=== PATIENT | female | born 1970 | race Two or more races ===

== ENCOUNTER → 2020-01-23 13:08 | Outpatient (BNVA) | payer OTHER, MEDICAID, SELFPAY | PROVIDERS: PCP Internal Medicine; Visit Provider Anesthesiology | DX: M47.27 Other spondylosis with radiculopathy, lumbosacral region (principal); G89.4 Chronic pain syndrome; Z96.651 Presence of right artificial knee joint | CPT/HCPCS: 99213 ==

== ENCOUNTER 2020-02-12 18:14 | Outpatient (REF) | payer OTHER, MEDICAID, SELFPAY ==
--- NOTE | 2020-02-12 18:16 | MR_ITS ---
EXAMINATION: MR LUMBAR SPINE WITHOUT CONTRAST CLINICAL INFORMATION: Other spondylosis with radiculopathy, lumbar sacral. COMPARISON: MRI scan of the lumbar spine 11/12/2015. TECHNIQUE: MRI of the lumbar spine was obtained using routine sequences without contrast. FINDINGS: VERTEBRAL BODIES AND PARASPINAL STRUCTURES: There is a mild levoscoliosis in the lower lumbar spine. There is mild narrowing of intervertebral disc height at L1-L2, with Schmorl's nodes in the adjacent endplates. There is also a Schmorl's node in the inferior endplate of T11. There are mild degenerative endplate contour changes. There are mild edematous signal changes in the left L4 pedicle. Vertebral body heights are maintained. No fractures are demonstrated. Overall, marrow signal is homogenous. The visualized retroperitoneal and pelvic structures are unremarkable. CONUS MEDULLARIS AND CAUDA EQUINA: Normal, terminating at the level of L1. The lower thoracic spinal cord appears normal. The cauda equina nerve roots and filum terminale appear normal. SPINAL LEVELS: L1-L2: The facet joints appear normal. There is a small posterior disc protrusion, but there is no central stenosis. The neural foramina are patent bilaterally. L2-L3: There is mild bilateral facet arthropathy. Disc contour is normal. There is no central stenosis or foraminal narrowing. L3-L4: There is mild bilateral facet arthropathy. Disc contour is normal. There is no central stenosis or foraminal narrowing. L4-L5: There is moderate to severe bilateral facet arthropathy with ligamenta flava hypertrophy and a left facet joint effusion. There is a broad-based posterior disc protrusion with an annular fissure extending into the left greater than right neural foramina, and there is impingement on the exiting left L4 nerve root. There is also marked narrowing of the bilateral subarticular recesses with impingement on the traversing L5 nerve roots. There is moderate central stenosis. L5-S1: There is severe bilateral facet arthropathy. There is a mild diffuse disc bulge, and there is a small right foraminal disc protrusion impinging on the exiting right L5 nerve root inferiorly. There is no central stenosis. MR/MR lumbar spine wo con IMPRESSION: 1. At L4-L5 there is facet arthropathy and there is a posterior disc protrusion. There is impingement on the exiting left L4 nerve root and there is marked narrowing of the bilateral subarticular recesses. There is moderate central stenosis. There are edematous signal changes in the left L4 pedicle, likely related to active degenerative changes. 2. At L5-S1 there is severe facet arthropathy and there is a posterior disc protrusion extending into the right neural foramen with impingement on the exiting right L5 nerve root. There is no central stenosis.
== END 2020-02-12 18:15 | disposition home or self-care (01) ==
LOC: HO.MRI 18:14
PROVIDERS: PCP Internal Medicine; Visit Provider Anesthesiology
DX: M47.27 Other spondylosis with radiculopathy, lumbosacral region (principal)
CPT/HCPCS: 72148

== ENCOUNTER 2020-06-10 14:08 | Outpatient (REF) | payer OTHER, SELFPAY | END 2020-06-10 14:09 | disposition home or self-care (01) | LOC: HO.LAB 14:08 | PROVIDERS: Visit Provider Internal Medicine | DX: Z20.822 Contact with and (suspected) exposure to COVID-19 (principal) | CPT/HCPCS: 36415; C9803; U0003; U0005 ==

== ENCOUNTER 2020-12-29 06:22 | Outpatient (REF) | payer OTHER, SELFPAY ==
--- NOTE | ~2020-12-29 | XR_ITS ---
EXAMINATION: XR KNEE STANDING, BILATERAL XR KNEE, LEFT CLINICAL INFORMATION: Knee pain. COMPARISON: 11/25/2017 TECHNIQUE: Standing view both knees with 2 additional views left knee. FINDINGS: A right total knee prosthesis is present without evidence of loosening or fracture. On the left, degenerative changes are present with narrowing of the medial compartment with some mild degenerative changes in the patellofemoral compartment with some posterior osteophytes. When comparison is made to an 11/26/2019 study, appearances are without significant change on the left. XR/XR knee standing BI IMPRESSION: Bicompartmental degenerative changes left knee.
--- NOTE | ~2020-12-29 | XR_ITS ---
EXAMINATION: XR KNEE STANDING, BILATERAL XR KNEE, LEFT CLINICAL INFORMATION: Knee pain. COMPARISON: 11/25/2017 TECHNIQUE: Standing view both knees with 2 additional views left knee. FINDINGS: A right total knee prosthesis is present without evidence of loosening or fracture. On the left, degenerative changes are present with narrowing of the medial compartment with some mild degenerative changes in the patellofemoral compartment with some posterior osteophytes. When comparison is made to an 11/26/2019 study, appearances are without significant change on the left. XR/XR knee LT 2V IMPRESSION: Bicompartmental degenerative changes left knee.
== END 2020-12-29 06:23 | disposition home or self-care (01) ==
LOC: HO.HOSX 06:22
PROVIDERS: Visit Provider Orthopaedic Surgery
DX: M47.27 Other spondylosis with radiculopathy, lumbosacral region (principal); G89.4 Chronic pain syndrome; S80.02XD Contusion of left knee, subsequent encounter; Z96.651 Presence of right artificial knee joint
CPT/HCPCS: 73560; 73565; 99212

== ENCOUNTER 2021-05-22 08:23 | Day surgery (SDC) | payer OTHER, SELFPAY ==
--- NOTE | 2021-05-21 12:26 | HO.ANESPROP2 ---
Documented by User: Irene Mcdaniel NP 05/21/21 12:28 HPI - Anesthesia Eval Consult details Narrative: 50yo F for Lumbar Spinal Cord Stimulation Trial PMFSH Active Problems Active Problems: All Active Problems (Updated 04/10/21 @ 15:04 by Jessica Mcgrath RN) Contusion of left knee (Acute) Status post total knee replacement, right (Acute) Chronic pain syndrome (Acute) Spondylosis of lumbosacral spine with radiculopathy (Acute) Past Medical History Medical History (Updated 04/10/21 @ 15:04 by Jessica Mcgrath RN) Chronic pain syndrome History of COVID-19 History of revision of total replacement of right knee joint Spondylosis of lumbosacral spine with radiculopathy Surgical History Surgical History (Updated 04/10/21 @ 15:04 by Jessica Mcgrath RN) History of bunionectomy History of surgery Hx of arthroscopy of right knee Status post total knee replacement, right Social History Social History Patient Tobacco Use Status: Former Tobacco user Tobacco use type: Cigarette Use of substances other than those prescribed or required for medical reasons: No Are you DNR?: No Advance Directives: No Advance Directives Information Provided: Yes Recently lost weight without trying: No How much weight loss: 2-13 pounds Nutrition Risks: No Nutritional Risk Meds Allergies Allergy/AdvReac Type Severity Reaction Status Date / Time Sulfa (Sulfonamide Allergy Mild RASH,ITCHY, Verified 12/29/20 16:04 Antibiotics) rash, rash Home Medications Medication Instructions Recorded Confirmed Last Taken Type albuterol sulfate 90 mcg/actuation 2 puff INHALATION Q6H PRN 01/23/20 12/29/20 Unknown History aerosol inhaler (ProAir HFA) aspirin 81 mg tablet,delayed 81 mg PO DAILY 01/23/20 12/29/20 Unknown History release Exam Exam Date and Time: May 21, 2021 122 Assessment and Plan Assessment Anesthesia Assessment: Chart Reviewed Documented by User: Oumar Nayak MD 05/22/21 10:43 PMF Past Medical History Medical History (Updated 04/10/21 @ 15:04 by Jessica Mcgrath, RN) Chronic pain syndrome History of COVID-19 History of revision of total replacement of right knee joint Spondylosis of lumbosacral spine with radiculopathy Family History Family history of problems with anesthesia: No Surgical History Surgical History (Updated 04/10/21 @ 15:04 by Jessica Mcgrath, RN) History of bunionectomy History of surgery Hx of arthroscopy of right knee Status post total knee replacement, right History of Problems with Anesthesia: No Social History Social History Patient Tobacco Use Status: Former Tobacco user Tobacco use type: Cigarette Use of substances other than those prescribed or required for medical reasons: No Are you DNR?: No Advance Directives: No Advance Directives Information Provided: Yes Recently lost weight without trying: No How much weight loss: 2-13 pounds Nutrition Risks: No Nutritional Risk Meds Allergies Allergy/AdvReac Type Severity Reaction Status Date / Time Sulfa (Sulfonamide Allergy Mild RASH,ITCHY, Verified 12/29/20 16:04 Antibiotics) rash, rash Home Medications Medication Instructions Recorded Confirmed Last Taken Type albuterol sulfate 90 mcg/actuation 2 puff INHALATION Q6H PRN 01/23/20 12/29/20 Unknown History aerosol inhaler (ProAir HFA) aspirin 81 mg tablet,delayed 81 mg PO DAILY 01/23/20 12/29/20 Unknown History release Exam Airway Mallampati Class: II TM Dist: >3cm Neck ROM: Full Assessment and Plan Assessment Anesthesia Assessment: Anesthesia Plan Discussed Final Anesthetic Review Family History of Problems with Anesthesia: No History of Problems with Anesthesia: No NPO: Yes ASA Class: II Final Preanesthetic Review: No Changes in Pt Med Stat, Meds/Allgs Chart Reviewed, Consent Obtained/Reviewed and Anes Risks/Benef Reviewed Patient Risk: Intermediate Procedure Risk: Low Anesthetic Plan Anesthetic Plan: GA Disposition: Standard PACU
[2021-05-22] VITALS (8 sets, daily range): BP systolic 101–112; BP diastolic 54–80; PULSE 60–85; RESP 10–22; TEMP 36.1; O2SAT 93–100; BMI 32.5
--- NOTE | ~2021-05-22 | FL_ITS ---
EXAMINATION: XR FLUOROSCOPY WITH IMAGES CLINICAL INFORMATION: Lumbar spinal trial. COMPARISON: None. TECHNIQUE: Fluoroscopy performed by Dr. Nato Osman. Fluoroscopy time: 2.3 minutes. DAP: 12.1 mGy-cm2 Images: 3. FINDINGS: There are three digital images obtained of thoracolumbar spine with two spinal posterior epidural electrodes noted positioned from T6-T7 through T10 vertebra. Visualized bones are grossly unremarkable. The disc levels are normal. FL/FL guidance in OR IMPRESSION: Fluoroscopy was provided to referring physician for pain management.
--- NOTE | 2021-05-22 07:33 | MHC.SHP ---
Pre-Procedural Eval Section A Date of Service: 05/22/21 The patient is an INPATIENT: No Changes since office visit: Yes Patient answered all questions The History & Physical has been completed within 30 days and I have reviewed it.: No Section B Chief Complaint: spondalosis Details of Present Illness: chronic pain syndrome, spondylosis lumbar spine Relevant Family History (Specify if Yes): No Relevant Social History: None Present Medications: see Short Stay Collaborative assessment Medical History: No relevant PMH History of Previous Operations: No relevant previous surgery Allergies: Allergies Allergy/AdvReac Type Severity Reaction Status Date / Time Sulfa (Sulfonamide Allergy Mild RASH,ITCHY, Verified 12/29/20 16:04 Antibiotics) rash, rash Review of Systems Sugical H&P ROS: Negative: Constitution, Cardiovascular, Respiratory, Neurological, Psychiatric, Hem-Onc, Allergic/Immunologic, Gastrointestinal, Genitourinary, Musculoskeletal, Integumentary, Endocrine and Eyes/Ears/Nose/Throat Exam Surgical H&P Exam: Normal: HEENT, Normal: Heart, Normal: Lungs, Normal: Extremities, Normal: Abdomen, Normal: Skin and Normal: Neurological Plan Diagnosis/Plan: Unchanged I have reviewed the history and physical and performed a pertinent physical examination on my patient. No changes have occurred unless specified.
--- NOTE | 2021-05-22 07:43 | W.PM.OPN ---
Operative Note Operative Note Date of Service: 05/22/21 Narrative: Guadalupe is very pleasant 50 y.o. female who came today into the operating room for trial of spinal cord stimulator for the treatment of chronic pain syndrome related to spondylosis of the lumbar spine. Preoperatively patient received cefasolin 2 g approximately 30 minutes before the procedure. After obtaining informed consent the patient was brought to the operating room, SHE was positioned prone on operating table, [employer] [place] [employer] monitors were applied and patient was deeply sedated.? ?Time-out was performed delineating correct site, side, the nature of the procedure, patient's allergy, preoperative antibiotic if needed.? All operating room staff was participating in OR time-out procedure. Patient's entire back was prepped with DuraPrep twice and draped with full body fenestrated drape.? Sterilely draped C-arm was brought over operating field and sqare picture of T12 L1 L2 vertebrae as were demonstrated on the screen.? Attention FIRST? was concentrated on the T12-L1 epidural interspace.? The location of the projection of the right pedicle center of the? L3 vertebra was found on the skin using C-arm.? This location was injected with mixture of lidocaine 2% and Marcaine 0.5% 5 cc.? After that 11 blade was used to make a hollie on the skin.? 10 cm 14 gauge? introducer epidural needle was inserted through the holile and advanced to? L1-L2 epidural interspace.? The advancement of the needle was performed on anterior posterior and lateral views.? Guitar wire and loss of resistance technique were used to locate epidural space.? When guitar wire was spread in the epidural fashion, epidural lead was inserted through the skin and it was advanced to top of T7 position? SLIGHTLY left OF THE MIDLINE.? After that location of the projection of the LEFT pedicle center of the L3 vertebra was found on the skin using C-arm.? This location was injected with mixture of lidocaine 2% and Marcaine 0.5% 5 cc.? After that 11 blade was used to make a hollie on the skin.? 10 cm 14 gauge curved introducer epidural needle was inserted through the hollie and advanced to L1-L2 epidural interspace.? The advancement of the needle was performed on anterior posterior and lateral views.? Guitar wire and loss of resistance technique were used to locate epidural space.? When guitar wire was spread in the epidural fashion, epidural lead was inserted through the needle and advanced to the middle of T9 epidural interspace slightly right to the existing electrode. lateral view was performed demonstrating both epidural leads in the posterior epidural space. Impedance was checked and was satisfactory .The needles were withdrawn, the stylette wires were removed from the epidural leads.? The anchoring devices were dislodged on the leads and advanced to the level of the skin.? The anchoring devices were sutured with two 0-0 silk sutures per each anchor to the skin of the patient. The central fixation screw of each anchor was rotated until three clicks were heard. The leads were connected to testing device.? Bacitracin ointment was applied to the entrance point of bilateral needles.? Sterile dressing was applied to the patient's back.? The testing device was also glued to the patient's back. The patient tolerated procedure fairly well she was taken outside of the operating to recovery room where she recovered uneventfully..?
[2021-05-22] MEDS: Lactated Ringers 1,000 ML 100 ML IVCONT (09:45)
--- NOTE | 2021-05-22 12:15 | PM.OP ---
Brief Operative Note Date of Service: 05/22/21 Pre-op diagnosis: chronic low back pain, chronic pain syndrome, spondylosis of lumbar spine Post-op diagnosis: same Procedure: trial of Nevro spinal cord stimulator. Implants: None permanent Surgeon: Nato Gardner MD Anesthesia: MAC Was an Offset Second Press Operator used for this Procedure?: No Estimated blood loss (mL): 0 Pathology: none sent Condition: stable Disposition: PACU
[2021-05-22] MEDS: fentaNYL citrate/PF 100 MCG/2 ML VIAL 50 MCG IVPUSH ×2 (12:20→12:25)
[2021-05-22] MEDS: oxyCODONE HCl Immed Release 5 MG TABLET PO ×2 (12:20→13:13)
== END 2021-05-22 14:00 | disposition home or self-care (01) ==
PROVIDERS: PCP Internal Medicine; Visit Provider Anesthesiology
PROC: (CPT 63650; principal; 2021-05-22 10:10)
DX: M47.27 Other spondylosis with radiculopathy, lumbosacral region (principal); G89.4 Chronic pain syndrome; M54.50 Low back pain, unspecified; M25.562 Pain in left knee; M25.50 Pain in unspecified joint; R26.9 Unspecified abnormalities of gait and mobility; Z96.651 Presence of right artificial knee joint; Z79.82 Long term (current) use of aspirin; Z88.2 Allergy status to sulfonamides; Z86.16 Personal history of COVID-19; Z87.891 Personal history of nicotine dependence
CPT/HCPCS: 63650 ×2; C1713; C1778; J0690; J2250; J2370; J3010

== ENCOUNTER → 2021-05-28 10:01 | Outpatient (BNVA) | payer OTHER, SELFPAY | PROVIDERS: PCP Internal Medicine; Visit Provider Anesthesiology | DX: M47.27 Other spondylosis with radiculopathy, lumbosacral region (principal); G89.4 Chronic pain syndrome; Z96.651 Presence of right artificial knee joint | CPT/HCPCS: 99212 ==

== ENCOUNTER 2021-07-07 06:05 | Outpatient (REF) | payer OTHER, SELFPAY ==
--- NOTE | ~2021-07-07 | FL_ITS ---
EXAMINATION: XR FLUOROSCOPY WITH IMAGES CLINICAL INFORMATION: Chronic pain syndrome. COMPARISON: None. TECHNIQUE: Fluoroscopy performed by Mary Allison. Fluoroscopy time: 0.1 minutes DAP: 1.34 Gycm2 Images: 2 FINDINGS: There are 2 digital images obtained under fluoroscopy reveals needle positioned posterior to L3 vertebra. No contrast seen. Visualized vertebral heights, alignment and disc heights are normal. FL/FL guidance in treatment room IMPRESSION: Fluoroscopy was provided to referrer for pain management.
== END 2021-07-07 06:06 | disposition home or self-care (01) ==
LOC: HO.RADIR 06:05
PROVIDERS: Visit Provider Anesthesiology
DX: G89.4 Chronic pain syndrome (principal); M47.27 Other spondylosis with radiculopathy, lumbosacral region; Z96.651 Presence of right artificial knee joint
CPT/HCPCS: 62323; J1170; Q9967

== ENCOUNTER → 2021-07-13 11:36 | Outpatient (BNVA) | payer OTHER, SELFPAY | PROVIDERS: PCP Internal Medicine; Visit Provider Anesthesiology | DX: M47.27 Other spondylosis with radiculopathy, lumbosacral region (principal); G89.4 Chronic pain syndrome; Z96.651 Presence of right artificial knee joint | CPT/HCPCS: 99212 ==

== ENCOUNTER 2021-09-25 09:28 | Day surgery (SDC) | payer OTHER, SELFPAY ==
--- NOTE | 2021-09-24 10:32 | HO.ANESPROP2 ---
Documented by User: Irene Mcdaniel NP 09/24/21 10:32 HPI - Anesthesia Eval Consult details Narrative: 51yo F for Intrathecal Drug Delivery Implant s/p spinal stim trial 05/2021 with GA PMFSH Active Problems Active Problems: All Active Problems (Updated 09/17/21 @ 12:42 by Simin Sheehan, RN) Spondylosis of lumbosacral spine with radiculopathy (Acute) Chronic pain syndrome (Acute) Status post total knee replacement, right (Acute) Contusion of left knee (Acute) Past Medical History Medical History (Updated 09/17/21 @ 12:42 by Simin Sheehan, JEB) Anxiety and depression Asthma Facial palsy GERD (gastroesophageal reflux disease) History of COVID-19 History of hepatitis C History of revision of total replacement of right knee joint History of seizures IBS (irritable bowel syndrome) Migraines KIMBERLY (obstructive sleep apnea) Family History Family history of problems with anesthesia: No Surgical History Surgical History (Updated 04/10/21 @ 15:04 by Jessica Mcgrath RN) History of bunionectomy History of surgery Hx of arthroscopy of right knee History of Problems with Anesthesia: No Social History Social History Patient Tobacco Use Status: Former Tobacco user Tobacco use type: Cigarette Second Hand Smoke Exposure: No Use of substances other than those prescribed or required for medical reasons: No Are you DNR?: No Advance Directives: No Advance Directives Information Provided: Yes Advance Directives on File: No Meds Allergies Allergy/AdvReac Type Severity Reaction Status Date / Time Sulfa (Sulfonamide Allergy Mild RASH,ITCHY, Verified 09/17/21 12:43 Antibiotics) rash, rash Home Medications Medication Instructions Recorded Confirmed Last Taken Type albuterol sulfate 90 mcg/actuation 2 puff inhalation Q6H PRN Wheezing 01/23/20 09/17/21 Unknown History aerosol inhaler (ProAir HFA) aspirin 81 mg tablet,delayed 81 mg PO DAILY 01/23/20 09/17/21 Unknown History release oxycodone 5 mg tablet 1 tab PO BID PRN pain 09/17/21 09/17/21 Unknown History Exam Exam Date and Time: September 24, 2021 1032 Assessment and Plan Assessment Anesthesia Assessment: Chart Reviewed Final Anesthetic Review Family History of Problems with Anesthesia: No History of Problems with Anesthesia: No Documented by User: Oumar Nayak MD 09/25/21 09:34 PMFSH Past Medical History Medical History (Updated 09/17/21 @ 12:42 by Simin Sheehan RN) Anxiety and depression Asthma Facial palsy GERD (gastroesophageal reflux disease) History of COVID-19 History of hepatitis C History of revision of total replacement of right knee joint History of seizures IBS (irritable bowel syndrome) Migraines KIMBERLY (obstructive sleep apnea) Surgical History Surgical History (Updated 04/10/21 @ 15:04 by Jessica Mcgrath RN) History of bunionectomy History of surgery Hx of arthroscopy of right knee Social History Social History Patient Tobacco Use Status: Former Tobacco user Tobacco use type: Cigarette Second Hand Smoke Exposure: No Use of substances other than those prescribed or required for medical reasons: No Are you DNR?: No Advance Directives: No Advance Directives Information Provided: Yes Advance Directives on File: No Meds Allergies Allergy/AdvReac Type Severity Reaction Status Date / Time Sulfa (Sulfonamide Allergy Mild RASH,ITCHY, Verified 09/17/21 12:43 Antibiotics) rash, rash Home Medications Medication Instructions Recorded Confirmed Last Taken Type albuterol sulfate 90 mcg/actuation 2 puff inhalation Q6H PRN Wheezing 01/23/20 09/17/21 Unknown History aerosol inhaler (ProAir HFA) aspirin 81 mg tablet,delayed 81 mg PO DAILY 01/23/20 09/17/21 Unknown History release oxycodone 5 mg tablet 1 tab PO BID PRN pain 09/17/21 09/17/21 Unknown History Exam Airway Mallampati Class: II TM Dist: >3cm Neck ROM: Full Denture: Upper Assessment and Plan Assessment Anesthesia Assessment: Anesthesia Plan Discussed Final Anesthetic Review NPO: Yes ASA Class: II Final Preanesthetic Review: No Changes in Pt Med Stat, Meds/Allgs Chart Reviewed, Consent Obtained/Reviewed and Anes Risks/Benef Reviewed Patient Risk: Intermediate Procedure Risk: Low Anesthetic Plan Anesthetic Plan: GA Disposition: Standard PACU
[2021-09-25] VITALS (9 sets, daily range): BP systolic 91–130; BP diastolic 63–102; PULSE 58–86; RESP 12–16; TEMP 36.1–36.6; O2SAT 94–98; BMI 27.1
--- NOTE | ~2021-09-25 | FL_ITS ---
EXAMINATION: XR FLUOROSCOPY WITH IMAGES CLINICAL INFORMATION: Intrathecal drug delivery implant COMPARISON: Fluoroscopic spot views 07/07/2021, 05/22/2021 TECHNIQUE: Fluoroscopy performed by Dr. Nato Gardner. Fluoroscopy time: 0.3 minutes DAP: 3.36 mGycm2 Images: 2 FINDINGS: There is a line or catheter ascending the posterior spinal canal with tip approximately level of T8-T9. FL/FL guidance in OR IMPRESSION: Fluoroscopy for pain management procedure.
[2021-09-25] MEDS: Lactated Ringers 1,000 ML 100 ML IVCONT (10:06)
--- NOTE | 2021-09-25 10:27 | MHC.SHP ---
Pre-Procedural Eval Section A Date of Service: 09/25/21 The patient is an INPATIENT: No Changes since office visit: Yes Patient answered all questions The History & Physical has been completed within 30 days and I have reviewed it.: No Section B Chief Complaint: spondylosis Details of Present Illness: spondylosis lumbar spine Relevant Family History (Specify if Yes): No Relevant Social History: None Present Medications: see Short Stay Collaborative assessment Medical History: No relevant PMH History of Previous Operations: Relevant previous surgery/procedure and date(s) Allergies: Allergies Allergy/AdvReac Type Severity Reaction Status Date / Time Sulfa (Sulfonamide Allergy Mild RASH,ITCHY, Verified 09/17/21 12:43 Antibiotics) rash, rash Review of Systems Sugical H&P ROS: Negative: Constitution, Cardiovascular, Respiratory, Neurological, Psychiatric, Hem-Onc, Allergic/Immunologic, Gastrointestinal, Genitourinary, Musculoskeletal, Integumentary, Endocrine and Eyes/Ears/Nose/Throat Exam Surgical H&P Exam: Normal: HEENT, Normal: Heart, Normal: Lungs, Normal: Extremities, Normal: Abdomen, Normal: Skin and Normal: Neurological Plan Diagnosis/Plan: Unchanged I have reviewed the history and physical and performed a pertinent physical examination on my patient. No changes have occurred unless specified.
--- NOTE | 2021-09-25 10:55 | W.PM.OPN ---
Operative Note Operative Note Date of Service: 09/25/21 Narrative: After obtaining informed consent and explaining to the patient risks, benefits and alternatives to treat this patient's pain, she was brought up to the operating room where she was positioned supine on the stretcher.? [place] [employer] monitors were applied and general anesthesia was induced with endotracheal intubation.? After that the patient was transferred to the operating table in the prone position.? All pressure points were protected.? The patient received antibiotic? cefazolin 2 g intravenously 30 minutes before incision. Time-out was performed delineating correct site and side of the procedure, name and date of of the patient, risk of fire, need for antibiotic prophylaxis risk of DVT and need for DVT prophylaxis. ? After that the patient entire back? and left upper buttock were prepped with Chloraprep and draped with full body drape including ioban film. Sterilely drape C-arm was brought over the OR field and square pictures of the L1, L2, L3 vertebrae were demonstrated on the screen..the entrance point? for the catheter was chosen as the L2-L3 interspace? .? Local anesthetic was injected into the skin and in the strict midline fashion? 6.5 cm vertical skin incision was made with #10 scalpel. The incision was widened with the Weitlaner retractor and deepened with electrocautery. Thorough hemostasis was obtained using electrocautery. The prevertebral fascia was freed from overlaying tissues. After that 100 mm introducer spinal 16 g needle was inserted under x-ray guidance in the projection of the right? L3 pedicle on AP view. The needle advanced under the x-ray guidance with intemittent A-P? and lateral pictures toward the spinal canal. When on the lateral view the needle entered the spinal canal the stylet was removed.? clear flow of the CSF was detected at the hub of the needle. Intrathecal Ascenda catheter was inserted through the needle and advanced under the x-ray guidance toward the T8? T9 intervertebral body interval projection. The care was taken to advance the catheter in the posterior intrathecal space.. The stylet was removed from the catheter and the flow of CSF fluid straw colored and clear was observed coming from the catheter.? Purse-string suture was applied surrounding? the a needle and it was tied.? After that the needle was withdrawn with care taken to keep the catheter in place.? Anchoring device was dislodged on the catheter and advanced until it met prevertebral fascia.? It was engaged on the body of the catheter.?One anchoring Tycron suture was? used to suture left wing of the anchor to prevertebral fascia and 2 anchoring sutures Tycron was used to stitch in the right wing of anchoring device to prevertebral fascia. ?After that the thorough irrigation of the wound was performed and wound was packed with vancomycin soaked 4 x 4. Attention then was concentrated on the patient's? left upper buttock where she wanted to implant the body of the intrathecal pump..Sterilely draped C-arm was brought over the operative field again and position of the patient's ? left iliac crest was demonstrated on the screen.? 2 cm below the projection of the? left iliac crest? to the skin of the local anesthetic bupivacaine? 0.75% was injected in the linear horizontal fashion.? After that 10? cm incision was performed in patient's? left upper buttock alongside the injected line. ? Thorough hemostasis was obtained using cautery device.? After that the wound was widened and made 3? cm deep .? The wound was extended medially and laterally as well as caudally and cranially to form the space to accommodate the body of the pump.? Thorough hemostasis was performed.The wound was irrigated with vancomycin containing normal saline and then tunneling device was used to connect both wounds and dislodged the intrathecal catheter into the side wound.? The catheter was trimmed appropriately after that and sutureless connection device was mounted on the catheter.? After that sutureless connection device was connected to the pump.? Aspiration of the side port of the pump revealed clear flow of CSF.? three anchoring 1-0 Tycron sutures were applied in most SUPERIOR MEDIAL AND inferior medial and inferior lateral CORNERS OF THE WOUND .? After that the sutures were connected to the brackets on the body of the pump, intrathecal catheter was gathered behind the body of the pump and pump was dislodged into the wound.? After that the anchoring sutures were tied.? After that noncoring needle was used again to reach side port of the pump in clear flow of CSF 0.5 mL was demonstrated in the syringe connected to the noncoring needle. ? Thorough irrigation was performed again in both wounds.? Thorough hemostasis was verified.? 0 polisorb sutures were used to close both wounds, 2-0 suture of the same nature were used to approximate the skin Of the pump wound.? Jesenia were applied to the skin line and Bacitracin ointment was applied to the staple lines.? Sterile dressing with sterile 4x4s was performed, abdominal binder was applied.? Upon completion of the procedure patient was awaken,extubated and taken outside of the operating room to recovery room where SHE recovered uneventfully.?
--- NOTE | 2021-09-25 13:33 | PM.OP ---
Brief Operative Note Date of Service: 09/25/21 Pre-op diagnosis: spondylosis lumbar spine, chronic pain syndrome Post-op diagnosis: same Procedure: implantation of intrathecal drug delivery system pain pump Implants: intrathecal pain pump SynchroMed 2 and intrathecal catheter ascenda Surgeon: Nato Gardner MD Anesthesia: GETA Was an [employer] used for this Procedure?: No Estimated blood loss (mL): 25 Pathology: none sent Condition: stable Disposition: PACU
[2021-09-25] MEDS: ondansetron HCL 4 MG/2 ML VIAL IVPUSH (13:42)
== END 2021-09-25 15:21 | disposition home or self-care (01) ==
PROVIDERS: PCP Internal Medicine; Visit Provider Anesthesiology
PROC: (CPT 62362; principal; 2021-09-25 10:40)
DX: M47.27 Other spondylosis with radiculopathy, lumbosacral region (principal); G89.4 Chronic pain syndrome; Z96.651 Presence of right artificial knee joint; Z88.2 Allergy status to sulfonamides; Z86.16 Personal history of COVID-19; Z87.891 Personal history of nicotine dependence
CPT/HCPCS: 62362; C1755; C1772; J0690; J1100; J1170; J2250; J2405; J2550; J2795; J3010; J3370

== ENCOUNTER → 2021-10-01 09:13 | Outpatient (BNVA) | payer OTHER, SELFPAY | PROVIDERS: PCP Internal Medicine; Visit Provider Anesthesiology | DX: M47.27 Other spondylosis with radiculopathy, lumbosacral region (principal); G89.4 Chronic pain syndrome; Z96.651 Presence of right artificial knee joint | CPT/HCPCS: 99212 ==

== ENCOUNTER → 2021-10-08 09:11 | Outpatient (BNVA) | payer OTHER, SELFPAY | PROVIDERS: PCP Internal Medicine; Visit Provider Anesthesiology | DX: G89.4 Chronic pain syndrome (principal); M47.27 Other spondylosis with radiculopathy, lumbosacral region; Z96.651 Presence of right artificial knee joint; Z98.890 Other specified postprocedural states | CPT/HCPCS: 99212 ==

== ENCOUNTER → 2021-10-14 16:04 | Outpatient (BNVA) | payer OTHER, SELFPAY | PROVIDERS: PCP Internal Medicine; Visit Provider Anesthesiology | DX: G89.4 Chronic pain syndrome (principal); M47.27 Other spondylosis with radiculopathy, lumbosacral region; Z96.651 Presence of right artificial knee joint | CPT/HCPCS: 99212 ==

== ENCOUNTER → 2021-10-21 16:19 | Outpatient (BNVA) | payer OTHER, SELFPAY | PROVIDERS: PCP Internal Medicine; Visit Provider Anesthesiology | DX: M47.27 Other spondylosis with radiculopathy, lumbosacral region (principal); G89.4 Chronic pain syndrome; Z96.651 Presence of right artificial knee joint | CPT/HCPCS: 99212 ==

== ENCOUNTER → 2021-12-09 09:45 | Outpatient (BNVA) | payer OTHER, SELFPAY | PROVIDERS: PCP Internal Medicine; Visit Provider Anesthesiology | DX: Z45.1 Encounter for adjustment and management of infusion pump (principal); M47.27 Other spondylosis with radiculopathy, lumbosacral region; G89.4 Chronic pain syndrome; Z96.651 Presence of right artificial knee joint | CPT/HCPCS: 62370; 99212 ==

== ENCOUNTER → 2021-12-23 08:23 | Outpatient (BNVA) | payer OTHER, SELFPAY | PROVIDERS: PCP Internal Medicine; Visit Provider Anesthesiology | DX: M47.27 Other spondylosis with radiculopathy, lumbosacral region (principal); G89.4 Chronic pain syndrome; Z96.651 Presence of right artificial knee joint | CPT/HCPCS: 99212 ==

== ENCOUNTER 2022-01-12 06:07 | Outpatient (REF) | payer OTHER, SELFPAY | END 2022-01-12 06:08 | disposition home or self-care (01) | LOC: CF 06:07 | PROVIDERS: Visit Provider Anesthesiology | DX: M47.27 Other spondylosis with radiculopathy, lumbosacral region (principal); G89.4 Chronic pain syndrome; Z96.651 Presence of right artificial knee joint | CPT/HCPCS: 62370 ==

== ENCOUNTER → 2022-01-22 10:40 | Outpatient (BNVA) | payer OTHER, SELFPAY | PROVIDERS: PCP Internal Medicine; Visit Provider Anesthesiology | DX: M47.27 Other spondylosis with radiculopathy, lumbosacral region (principal); G89.4 Chronic pain syndrome; Z96.651 Presence of right artificial knee joint | CPT/HCPCS: 62368 ==

== ENCOUNTER → 2022-03-25 10:15 | Outpatient (BNVA) | payer OTHER, SELFPAY | PROVIDERS: PCP Internal Medicine; Visit Provider Anesthesiology | DX: M47.27 Other spondylosis with radiculopathy, lumbosacral region (principal); G89.4 Chronic pain syndrome; Z96.651 Presence of right artificial knee joint; Z45.1 Encounter for adjustment and management of infusion pump | CPT/HCPCS: 62370 ==

== ENCOUNTER → 2022-06-16 11:24 | Outpatient (BNVA) | payer OTHER, SELFPAY | PROVIDERS: PCP Internal Medicine; Visit Provider Anesthesiology | DX: G89.4 Chronic pain syndrome (principal); M47.27 Other spondylosis with radiculopathy, lumbosacral region; M46.1 Sacroiliitis, not elsewhere classified; M53.3 Sacrococcygeal disorders, not elsewhere classified; G51.0 Bell's palsy; Z96.651 Presence of right artificial knee joint; Z96.82 Presence of neurostimulator; Z76.0 Encounter for issue of repeat prescription | CPT/HCPCS: 62370; 99212 ==

== ENCOUNTER 2022-07-13 05:55 | Outpatient (REF) | payer OTHER, SELFPAY ==
--- NOTE | ~2022-07-13 | FL_ITS ---
EXAMINATION: XR FLUOROSCOPY WITH IMAGES CLINICAL INFORMATION: Sacrococcygeal disorder COMPARISON: None available. TECHNIQUE: Fluoroscopy Supervised By: Dr. Nato Gardner. Fluoroscopy Time: 0.1 minutes. Cumulative Dose: 2.26 mGy. DAP: 0.616 Gycm2. Images: 1. FINDINGS: Needle and contrast seen overlying the right sacroiliac joint. FL/FL guidance in treatment room IMPRESSION: Intraoperative fluoroscopy for pain management procedure.
== END 2022-07-13 05:56 | disposition home or self-care (01) ==
LOC: CF 05:55
PROVIDERS: Visit Provider Anesthesiology
DX: G89.29 Other chronic pain (principal); M53.3 Sacrococcygeal disorders, not elsewhere classified; M47.27 Other spondylosis with radiculopathy, lumbosacral region
CPT/HCPCS: 27096; J3301

== ENCOUNTER → 2022-09-01 11:38 | Outpatient (BNVA) | payer OTHER, SELFPAY | PROVIDERS: PCP Internal Medicine; Visit Provider Anesthesiology | DX: Z45.1 Encounter for adjustment and management of infusion pump (principal); G89.4 Chronic pain syndrome; M47.27 Other spondylosis with radiculopathy, lumbosacral region; M46.1 Sacroiliitis, not elsewhere classified; M53.3 Sacrococcygeal disorders, not elsewhere classified; Z96.651 Presence of right artificial knee joint | CPT/HCPCS: 62370; 99212 ==

== ENCOUNTER 2022-10-20 11:13 | Outpatient (AMB) | payer OTHER, SELFPAY ==
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
[2022-10-20 12:12] VITALS: BP 110/56; PULSE 78; O2SAT 96; BMI 32.8
== END 2022-10-20 12:09 | disposition home or self-care (01) ==
PROVIDERS: PCP Internal Medicine; Visit Provider Anesthesiology
DX: M47.27 Other spondylosis with radiculopathy, lumbosacral region (principal); G89.4 Chronic pain syndrome; Z96.651 Presence of right artificial knee joint; M46.1 Sacroiliitis, not elsewhere classified; M53.3 Sacrococcygeal disorders, not elsewhere classified; G89.29 Other chronic pain
CPT/HCPCS: 62370; 99214

== ENCOUNTER → 2022-10-20 11:13 | Outpatient (BNVA) | payer OTHER, SELFPAY | PROVIDERS: PCP Internal Medicine; Visit Provider Anesthesiology | DX: M47.27 Other spondylosis with radiculopathy, lumbosacral region (principal); M46.1 Sacroiliitis, not elsewhere classified; M53.3 Sacrococcygeal disorders, not elsewhere classified; G89.4 Chronic pain syndrome; Z96.651 Presence of right artificial knee joint; Z96.89 Presence of other specified functional implants | CPT/HCPCS: 99212 ==

== ENCOUNTER 2023-01-05 10:36 | Outpatient (AMB) | payer OTHER, SELFPAY ==
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
[2023-01-05 11:37] VITALS: BP 138/78; PULSE 88; RESP 16; O2SAT 97; BMI 30.6
== END 2023-01-05 11:14 | disposition home or self-care (01) ==
PROVIDERS: PCP Internal Medicine; Visit Provider Anesthesiology
DX: M47.27 Other spondylosis with radiculopathy, lumbosacral region (principal); G89.4 Chronic pain syndrome; Z96.651 Presence of right artificial knee joint; Z45.1 Encounter for adjustment and management of infusion pump; M46.1 Sacroiliitis, not elsewhere classified; M53.3 Sacrococcygeal disorders, not elsewhere classified; G89.29 Other chronic pain
CPT/HCPCS: 62370; 99213

== ENCOUNTER → 2023-01-05 10:36 | Outpatient (BNVA) | payer OTHER, SELFPAY | PROVIDERS: PCP Internal Medicine; Visit Provider Anesthesiology | DX: Z45.1 Encounter for adjustment and management of infusion pump (principal); G89.4 Chronic pain syndrome; M47.27 Other spondylosis with radiculopathy, lumbosacral region; M46.1 Sacroiliitis, not elsewhere classified; M53.3 Sacrococcygeal disorders, not elsewhere classified; Z96.651 Presence of right artificial knee joint | CPT/HCPCS: 62370; 99212 ==

== ENCOUNTER 2023-03-16 11:01 | Outpatient (AMB) | payer OTHER, SELFPAY ==
--- NOTE | 2023-03-16 11:04 | MHC.OFFVIS ---
Intake Vital Signs 03/16/23 11:14 Height 5 ft 3 in Weight 17 lb BMI 3.0 BP 150/72 H Blood Pressure Location Lt brachial Position Sitting Respiration 14 Pulse 82 Pulse Source Pulse Oximeter Pulse Oximetry (%) 94 Oxygen Delivery Method Room Air Intake Visit Reasons: ITDD Refill Allergies Sulfa (Sulfonamide Antibiotics) Allergy (Mild, Verified 03/16/23 11:15) RASH,ITCHY, rash, rash HPI HPI Comments History of Present Illness Details Guadalupe is in my office today to discuss increased pain level. She reports that pain pump does not help her strong enough. She is on admixture of hydromorphone 0.6 milligrams/mL and bupivacaine 10 milligrams/mL. We decided that I will add 1 more medication to her pump clonidine in the order to give her initial dose of clonidine 40 mcg a day I would need to administer to her 180 mcg of clonidine in 1 mL. The pump refill with new medication is as below.? The new admixture of the medications was prepared for her with hydromorphone 600 mcg and bupivacaine 10 milligrams/mL. Also attention was attracted today to very severe tenderness on palpation in the projection of bilateral sacroiliac joints. The full examination is as below. I offered the patient bilateral sacroiliac joint injection. She wants to do the procedure under sedation. This will be therapeutic procedure. [facility] Medical History (Updated 03/17/23 @ 09:47 by Nato Gardner MD) History of seizures IBS (irritable bowel syndrome) GERD (gastroesophageal reflux disease) History of hepatitis C Facial palsy Migraines Anxiety and depression KIMBERLY (obstructive sleep apnea) Asthma History of revision of total replacement of right knee joint History of COVID-19 Chronic pain syndrome Spondylosis of lumbosacral spine with radiculopathy Surgical History (Updated 12/09/21 @ 10:29 by Nato Gardner MD) History of surgery History of bunionectomy Hx of arthroscopy of right knee Status post total knee replacement, right Social History Patient Tobacco Use Status: Former Tobacco user Tobacco use type: Cigarette Second Hand Smoke Exposure: No Review of Systems Const All systems reviewed & are unremarkable except as noted in HPI and below Physical Exam Vital Signs: Last Vital Signs Pulse 82 03/16/23 11:14 Resp 14 03/16/23 11:14 BP 150/72 H 03/16/23 11:14 Pulse Ox 94 12/13/23 11:14 Oxygen Delivery Method Room Air 03/16/23 11:14 BMI result Body Mass Index 3.0 Const Nutritional Appearance: average body habitus Orientation/consciousness: oriented to person and patient oriented x3 Eyes General: appearance normal, both eyes and all related structures Pupils: Equal, round and reactive pupils present EOM: EOMs intact bilaterally Neck Neck: No full ROM, Yes no meningeal signs, No supple and Yes tender Chest Chest palpation & inspection: normal inspection of the chest Resp Effort & Inspection: normal respiratory effort, able to speak in complete sentences, normal respiratory pattern, no audible wheezes and no cough Cardio Jugular venous distension: no JVD GI Inspection: Yes normal to inspection Back/Spine/Pelvis Other: Tenderness of palpation of paraspinal spinal region lumbar spine no most strands of bilateral lower extremities. Reflexes are symmetrical and +2 bilaterally patellar and Achilles. Reports mostly axial pain. Tenderness on palpation in projection of bilateral sacroiliac joints. Emeterio test is positive bilaterally. Gaenslen test is positive bilaterally. Pelvic destruction and pelvis compression tests are positive bilaterally. Stinchfield test is positive bilaterally. Neuro General: oriented to person, patient oriented x3 and no meningeal signs Cranial nerves: Yes Equal, round and reactive pupils present Gait exam (Neuro): Normal gait present Motor exam (neuro): 5/5 motor strength present throughout Extrem General: No pedal edema Assessment & Plan Assessment & Plan (1) Spondylosis of lumbosacral spine with radiculopathy: Code(s): M47.27 - Other spondylosis with radiculopathy, lumbosacral region (2) Chronic pain syndrome: Code(s): G89.4 - Chronic pain syndrome Plan: Next time I will order a new batch of the pain pump with the same concentration of hydromorphone 600 micrograms/mL as well as the same concentration of bupivacaine 10 milligrams/mL as well as clonidine 180 micro g per mL. (3) Status post total knee replacement, right: Code(s): Z96.651 - Presence of right artificial knee joint (4) Sacroiliitis: Code(s): M46.1 - Sacroiliitis, not elsewhere classified (5) Pain of both sacroiliac joints: Code(s): M53.3 - Sacrococcygeal disorders, not elsewhere classified Plan: I offered her and she agreed to go for bilateral sacroiliac joint therapeutic injections. She needs sedation for the procedure. I will schedule her for the procedure accordingly. Plan ? Intrathecal pump refill. THE PATIENT CAME TODAY IN THE office FOR THE CHANGE OF THE MEDICATION IN her PAIN PUMP. The name and date of were verified and informed consent was obtained for the procedure. ?The pump was interrogated and the residual amount of fluid was found to be 6.7 mL. SHE WAS POSITIONED prone on the bed AND THE AREA OF THE INTRATHECAL PUMP WAS PREPPED WITH CHLORAPREP. The fenestrated drape was sterilely applied over the area of the pump. Sterile gloves were worn and of the aspiration system was assembled containing 2 in 22 gauge noncoring needle, the needle was connected to extension tubing which was connected to the 20 cc sterile syringe. The pain pump was palpated under the skin in the patient's right buttock area. The needle was inserted through the skin and the central plug of the pain pump and fluid was aspirated. The clear fluid was going into the syringe the total amount of the fluid was 6.8 mL .. After that a new batch? of medication was obtained which was containing hydromorphone in concentration of 600 micro g per mL and bupivacain 10 mg per ml. The admixture was made in 20 cc syringe prepared by [facility] compounding pharmacy. The syringe was connected to the bacterial filter, and then connected to the extension tubing. After that the medication in the syringe was slowly instilled into the pump with aspirations at 15 and 5 cc pemberton.? The pump was reprogrammed for the doses of continuous infusion of hydromorphone 110 mcg a day with corresponding dose of the bupivacaine as well as she was given a bolus of 25 micro g once a day to alleviate her pain better. Coding Level of Care Code Est Pt Level 4 (76062) Procedure Only Diagnoses Spondylosis of lumbosacral spine with radiculopathy M47.27 Chronic pain syndrome G89.4 Status post total knee replacement, right Z96.651 Sacroiliitis M46.1 Pain of both sacroiliac joints M53.3
[2023-03-16 11:14] VITALS: BP 150/72; PULSE 82; RESP 14; O2SAT 94
== END 2023-03-16 11:42 | disposition home or self-care (01) ==
PROVIDERS: PCP Internal Medicine; Visit Provider Anesthesiology
DX: M47.27 Other spondylosis with radiculopathy, lumbosacral region (principal); G89.4 Chronic pain syndrome; Z96.651 Presence of right artificial knee joint; M46.1 Sacroiliitis, not elsewhere classified; M53.3 Sacrococcygeal disorders, not elsewhere classified; Z45.1 Encounter for adjustment and management of infusion pump
CPT/HCPCS: 62370; 99214

== ENCOUNTER → 2023-03-16 11:01 | Outpatient (BNVA) | payer OTHER, SELFPAY | PROVIDERS: PCP Internal Medicine; Visit Provider Anesthesiology | DX: M47.27 Other spondylosis with radiculopathy, lumbosacral region (principal); M46.1 Sacroiliitis, not elsewhere classified; M53.3 Sacrococcygeal disorders, not elsewhere classified; G89.4 Chronic pain syndrome; Z96.651 Presence of right artificial knee joint | CPT/HCPCS: 62370; 99212 ==

== ENCOUNTER 2023-04-15 07:37 | Day surgery (SDC) | payer OTHER, SELFPAY ==
[2023-04-12 14:49] VITALS: BMI 30.6
--- NOTE | 2023-04-14 11:39 | HO.ANESPROP2 ---
HPI - Anesthesia Eval Consult details Narrative: 52yo F for Bilateral Therapeutic Sacroiliac Joint Steroid Injection s/p intrathecal drug implant 09/2021 with GA-ETT 7 PMFSH Active Problems Active Problems: All Active Problems (Updated 04/12/23 @ 14:48 by Jessica Mcgrath RN) Pain of both sacroiliac joints (Acute) Chronic right sacroiliac joint pain (Acute) Sacroiliitis (Acute) Contusion of left knee (Acute) Spondylosis of lumbosacral spine with radiculopathy (Acute) Chronic pain syndrome (Acute) Status post total knee replacement, right (Acute) Past Medical History Medical History (Updated 04/12/23 @ 14:44 by Jessica Mcgrath RN) History of seizures IBS (irritable bowel syndrome) GERD (gastroesophageal reflux disease) History of hepatitis C Facial palsy Migraines Anxiety and depression KIMBERLY (obstructive sleep apnea) Asthma History of COVID-19 Chronic pain syndrome Spondylosis of lumbosacral spine with radiculopathy Family History Family history of problems with anesthesia: No Surgical History Surgical History (Updated 04/12/23 @ 14:48 by Jessica Mcgrath RN) History of surgery History of surgery History of surgery History of bunionectomy Hx of arthroscopy of right knee Status post total knee replacement, right History of Problems with Anesthesia: No Social History Social History Patient Tobacco Use Status: Former Tobacco user Tobacco use type: Cigarette Second Hand Smoke Exposure: No Meds Allergies Allergy/AdvReac Type Severity Reaction Status Date / Time Sulfa (Sulfonamide Allergy Mild RASH,ITCHY, Verified 03/16/23 11:15 Antibiotics) rash, rash Home Medications Medication Instructions Recorded Confirmed Last Taken Type albuterol sulfate 90 mcg/actuation 2 puff inhalation Q6H PRN Wheezing 01/23/20 10/20/22 Unknown History aerosol inhaler (ProAir HFA) aspirin 81 mg tablet,delayed 81 mg PO DAILY 01/23/20 10/20/22 Unknown History release albuterol sulfate 2.5 mg/3 mL mg inhalation 07/13/22 10/20/22 Unknown History (0.083 %) solution for nebulization Exam Height,Weight and Vital Signs: Height 5 ft 3 in Weight 78.471 kg Assessment and Plan Assessment Anesthesia Assessment: Chart Reviewed Final Anesthetic Review Family History of Problems with Anesthesia: No History of Problems with Anesthesia: No
--- NOTE | ~2023-04-15 | FL_ITS ---
CLINICAL INDICATION: Back pain. FINDINGS: Technical assistance and equipment were provided by the Department of Radiology during intraoperative fluoroscopy for therapeutic bilateral SI joint injection. 2, limited fluoroscopic spot images are submitted. A radiologist was not present during the procedure. Images demonstrate the tips of percutaneous needles to project over each of the SI joints. Contrast is injected. The images are available for review on PACS. TOTAL FLUOROSCOPY TIME: 0.4 minutes. DOSE AREA PRODUCT: 0.78 Gy-cm2 (jenkins-centimeter squared) FL/FL guidance in OR IMPRESSION: Technical assistance and equipment provided by the Department of Radiology during intraoperative fluoroscopy, as above. Please see operative report for further details.
--- NOTE | 2023-04-15 08:15 | HO.ANESPROP2 ---
[facility] Active Problems Active Problems: All Active Problems (Updated 04/12/23 @ 14:44 by Jessica Mcgrath RN) Pain of both sacroiliac joints (Acute) Chronic right sacroiliac joint pain (Acute) Sacroiliitis (Acute) Contusion of left knee (Acute) Spondylosis of lumbosacral spine with radiculopathy (Acute) Chronic pain syndrome (Acute) Status post total knee replacement, right (Acute) Past Medical History Medical History History of seizures IBS (irritable bowel syndrome) GERD (gastroesophageal reflux disease) History of hepatitis C Facial palsy Migraines Anxiety and depression KIMBERLY (obstructive sleep apnea) Asthma History of COVID-19 Chronic pain syndrome Spondylosis of lumbosacral spine with radiculopathy Patient : No Family History Family history of problems with anesthesia: No Surgical History Surgical History History of surgery History of surgery History of surgery History of bunionectomy Hx of arthroscopy of right knee Status post total knee replacement, right History of Problems with Anesthesia: No Social History Social History Patient Tobacco Use Status: Former Tobacco user Tobacco use type: Cigarette Second Hand Smoke Exposure: No Advance Directives: No Advance Directives Information Provided: Yes Meds Allergies Allergy/AdvReac Type Severity Reaction Status Date / Time Sulfa (Sulfonamide Allergy Mild RASH,ITCHY, Verified 03/16/23 11:15 Antibiotics) rash, rash Active Medications: Current Medications Albuterol Sulfate (Albuterol Sulfate (0.083%) 2.5 Mg/3 Ml Vial.Neb) 2.5 mg INHALE ONCE PRN PRN Reason: Shortness of Breath/Wheezing Lactated Ringer's (Lr) 1,000 mls @ 100 mls/hr IVCONT .Q10H [facility] Home Medications Medication Instructions Recorded Confirmed Last Taken Type albuterol sulfate 90 mcg/actuation 2 puff inhalation Q6H PRN Wheezing 01/23/20 10/20/22 Unknown History aerosol inhaler (ProAir HFA) aspirin 81 mg tablet,delayed 81 mg PO DAILY 01/23/20 10/20/22 Unknown History release albuterol sulfate 2.5 mg/3 mL mg inhalation 07/13/22 10/20/22 Unknown History (0.083 %) solution for nebulization Exam Height,Weight and Vital Signs: Height 5 ft 3 in Weight 78.471 kg Assessment and Plan Final Anesthetic Review Family History of Problems with Anesthesia: No History of Problems with Anesthesia: No
[2023-04-15 08:33] VITALS: BMI 30.9
[2023-04-15 08:35] VITALS: BP 117/86; PULSE 71; RESP 16; TEMP 36.4; O2SAT 94
[2023-04-15] MEDS: Lactated Ringers 1,000 ML 100 ML IVCONT (08:50)
--- NOTE | 2023-04-15 11:05 | P.HPSUR_ITS ---
Pre-Procedural Eval Section A Date of Service: 04/15/23 The patient is an INPATIENT: No Changes since office visit: Yes Patient answered all questions The History & Physical has been completed within 30 days and I have reviewed it.: No Section B Chief Complaint: Sacroiliitis,Sacrococcygeal disorders, not elsewhe Details of Present Illness: as above Relevant Family History (Specify if Yes): No Relevant Social History: None Present Medications: None Medical History: No relevant PMH History of Previous Operations: No relevant previous surgery Allergies: Allergies Allergy/AdvReac Type Severity Reaction Status Date / Time Sulfa (Sulfonamide Allergy Mild RASH,ITCHY, Verified 04/15/23 08:33 Antibiotics) rash, rash Review of Systems Sugical H&P ROS: Negative: Constitution, Cardiovascular, Respiratory, Neurological, Psychiatric, Hem-Onc, Allergic/Immunologic, Gastrointestinal, Genitourinary, Musculoskeletal, Integumentary, Endocrine and Eyes/Ears/Nose/Thr oat Exam Surgical H&P Exam: Normal: HEENT, Normal: Heart, Normal: Lungs, Normal: Extremities, Normal: Abdomen, Normal: Skin and Normal: Neurological Plan Diagnosis/Plan: Unchanged I have reviewed the history and physical and performed a pertinent physical examination on my patient. No changes have occurred unless specified. Time Spent With Patient Time: Total time managing care of this patient today ____ minutes.
[2023-04-15 11:50] VITALS: BP 93/64; PULSE 84; RESP 16; TEMP 36.4; O2SAT 95
--- NOTE | 2023-04-15 11:51 | PM.OP ---
Brief Operative Note Date of Service: 04/15/23 Pre-op diagnosis: sacroiliitis Post-op diagnosis: same Procedure: Bilateral sacroiliac joints steroid injections Surgeon: Nato Gardner MD Anesthesia: MAC Was an [employer] used for this Procedure?: No Estimated blood loss (mL): 0 Condition: stable Disposition: PACU
--- NOTE | 2023-04-15 11:54 | W.PM.OPN ---
Operative Note Operative Note Date of Service: 04/15/23 Narrative: bilateral therapeutic sacroiliac joint injection Informed consent was explained thoroughly to the patient. All questions about benefits and risks for the procedure were answered. Patient came to the operating room and was positioned prone on the operating table with the pillow under the pelvis. ASA monitors were applied and the patient was deeply sedated. Time out was performed delineating name and of the patient, allergies and the nature of the procedure. The lower back and buttocks of the patient were prepped with ChloraPrep prepped and draped with sterile utility towels. C-arm was brought over the operating field and sq picture of patient's pelvis was demonstrated on the screen. For the right joint tilting C-arm contralateral to the site of the joint the most posterior portion of the joints was superimposed with anterior silhouette of the joint. Skin was injected in the projection of the joint slightly medial to the location of the joint with 25 gauge 1/2 inch needle using local lidocaine 2% .After that 22 gauge 3 and 1/2 inch needle was driven to the right joint in tunnel vision fashion. When needle entered the joint capsule injection of the contrast was performed demonstrating intra-articular and minimally periarticular spread of the contrast. After that 4 cc. of ropivacaine 0.5% mixed with kenalog 40 mg was injected into the joint. Upon completion of the injections the needle was redirected to the left SI joint and the procedure was performed in mirroring fashion. Sterile dressing was applied. Upon completion of the injection patient was taken outside of the operating room to the recovery room where recovered uneventfully.
[2023-04-15 12:05] VITALS: BP 114/91; PULSE 71; RESP 16; O2SAT 95
[2023-04-15 12:24] VITALS: BP 112/70; PULSE 70; RESP 18; TEMP 36.4; O2SAT 95
--- NOTE | 2023-04-15 13:46 | HO.POSTANES ---
Post Anesthesia Evaluation Post Anesthesia Evaluation Date of Service: 04/15/23 Vital Signs: Vital Signs Temp Pulse Resp BP Pulse Ox O2 Del Method 04/15/23 12:24 97.6 F 70 18 112/70 95 Room Air 04/15/23 12:05 71 16 114/91 H 95 Room Air 04/15/23 11:50 97.6 F 84 16 93/64 95 Room Air 04/15/23 08:35 97.6 F 71 16 117/86 94 Room Air Anesthesia: Monitored Mental Status: Awake Pain Control: Satisfactory Nausea/Vomiting: None Hydration: Adequate Anesthesia-Related Issues: No Anes. Related Issues
== END 2023-04-15 13:30 | disposition home or self-care (01) ==
PROVIDERS: PCP Internal Medicine; Visit Provider Anesthesiology
PROC: 3E0U33Z Introduction of Anti-inflammatory into Joints, Percutaneous Approach (ICD-10-PCS; CPT 27096; principal; 2023-04-15 09:20)
DX: M46.1 Sacroiliitis, not elsewhere classified (principal); M53.3 Sacrococcygeal disorders, not elsewhere classified; G89.4 Chronic pain syndrome; M47.27 Other spondylosis with radiculopathy, lumbosacral region; R56.9 Unspecified convulsions; Z86.19 Personal history of other infectious and parasitic diseases; J45.909 Unspecified asthma, uncomplicated; G51.0 Bell's palsy; G47.33 Obstructive sleep apnea (adult) (pediatric); G43.909 Migraine, unspecified, not intractable, without status migrainosus; F41.8 Other specified anxiety disorders; Z88.2 Allergy status to sulfonamides; Z96.651 Presence of right artificial knee joint; Z98.890 Other specified postprocedural states; Z87.891 Personal history of nicotine dependence
CPT/HCPCS: 27096; J2250; J2704; J2795; J3010; J3301; Q9967

== ENCOUNTER → 2023-04-15 07:37 | Outpatient (BNV) | payer OTHER, SELFPAY | PROVIDERS: PCP Internal Medicine; Visit Provider Anesthesiology | DX: M46.1 Sacroiliitis, not elsewhere classified (principal); M53.3 Sacrococcygeal disorders, not elsewhere classified | CPT/HCPCS: 27096 ==

== ENCOUNTER 2023-06-01 15:40 | Outpatient (AMB) | payer OTHER, SELFPAY ==
--- NOTE | 2023-06-01 15:41 | A.OFFVIS_ITS ---
Intake Vital Signs 06/01/23 16:14 Height 5 ft 3 in Weight 174 lb BMI 30.8 BP 118/70 Blood Pressure Location Lt brachial Position Sitting Respiration 16 Pulse 75 Pulse Source Pulse Oximeter Pulse Oximetry (%) 97 Oxygen Delivery Method Room Air Intake Visit Reasons: ITDD Refill/ S/p B/l Therapeutic SIJ Inj 04/15/23 Intake Note: Patient comes in for intrathecal medication refill and post-op appointment. Reports pain 01/11. Allergies Sulfa (Sulfonamide Antibiotics) Allergy (Mild, Verified 06/01/23 16:15) RASH,ITCHY, rash, rash HPI HPI Comments History of Present Illness Details Guadalupe is in my office today in obvious distress. She reports pain in the projection of bilateral costovertebral angles radiating into the bilateral flanks and also radiating into the bilateral hips and bilateral groins. It is possible that she has renal colic. She has history of kidney stones. We agreed that she will go to emergency room today after we refill her pump. The pump refill with new medication is as below.? The new admixture of the medications was prepared for her with hydromorphone 600 mcg and bupivacaine 10 milligrams/mL. Sacroiliac joint injection which was performed on 04/15/2023 resulted only in 5 days of pain relief. Pain pump refill is as below. [facility] Medical History (Updated 04/15/23 @ 08:51 by Marium Lincoln RN) Irregular heart rhythm History of seizures IBS (irritable bowel syndrome) GERD (gastroesophageal reflux disease) History of hepatitis C Facial palsy Migraines Anxiety and depression KIMBERLY (obstructive sleep apnea) Asthma History of COVID-19 Chronic pain syndrome Spondylosis of lumbosacral spine with radiculopathy Surgical History (Updated 06/02/23 @ 07:50 by Nato Gardner MD) Hx of surgical procedure Hx of left inguinal hernia repair Hx of appendectomy History of surgery History of surgery History of surgery History of bunionectomy Hx of arthroscopy of right knee Status post total knee replacement, right Social History Patient Tobacco Use Status: Former Tobacco user Quit Date: 1 yr ago Tobacco use type: Cigarette Second Hand Smoke Exposure: No Review of Systems Const All systems reviewed & are unremarkable except as noted in HPI and below Physical Exam Vital Signs: Last Vital Signs Pulse 75 06/01/23 16:14 Resp 16 06/01/23 16:14 BP 118/70 06/01/23 16:14 Pulse Ox 97 06/01/23 16:14 Oxygen Delivery Method Room Air 06/01/23 16:14 BMI result Body Mass Index 30.8 Const Nutritional Appearance: average body habitus Orientation/consciousness: oriented to person and patient oriented x3 Eyes General: appearance normal, both eyes and all related structures Pupils: Equal, round and reactive pupils present EOM: EOMs intact bilaterally Neck Neck: No full ROM, Yes no meningeal signs, No supple and Yes tender Chest Chest palpation & inspection: normal inspection of the chest Resp Effort & Inspection: normal respiratory effort, able to speak in complete sentences, normal respiratory pattern, no audible wheezes and no cough Cardio Jugular venous distension: no JVD GI Inspection: Yes normal to inspection General: Yes CVA tenderness Back/Spine/Pelvis Other: Tenderness of palpation of paraspinal spinal region lumbar spine no most strands of bilateral lower extremities. Reflexes are symmetrical and +2 bilaterally patellar and Achilles. Reports mostly axial pain. Tenderness on palpation in projection of bilateral sacroiliac joints. Emeterio test is positive bilater ally. Gaenslen test is positive bilaterally. Pelvic destruction and pelvis compression tests are positive bilaterally. Stinchfield test is positive bilaterally. Tenderness on percussion at CVA. Back: CVA tenderness Neuro General: oriented to person, patient oriented x3 and no meningeal signs Cranial nerves: Yes Equal, round and reactive pupils present Gait exam (Neuro): Normal gait present Motor exam (neuro): 5/5 motor strength present throughout Extrem General: No pedal edema Assessment & Plan Assessment & Plan (1) Spondylosis of lumbosacral spine with radiculopathy: Code(s): M47.27 - Other spondylosis with radiculopathy, lumbosacral region (2) Chronic pain syndrome: Code(s): G89.4 - Chronic pain syndrome (3) Status post total knee replacement, right: Code(s): Z96.651 - Presence of right artificial knee joint (4) Sacroiliitis: Code(s): M46.1 - Sacroiliitis, not elsewhere classified (5) Pain of both sacroiliac joints: Code(s): M53.3 - Sacrococcygeal disorders, not elsewhere classified Plan: Pump refill as below. Renal colic needs to be excluded. I recommended patient to go to emergency room [place]. Patient expressed understanding. She refused us to call ambulance and deliver her to emergency room. Plan ? Intrathecal pump refill. THE PATIENT CAME TODAY IN THE office FOR THE CHANGE OF THE MEDICATION IN her PAIN PUMP. The name and date of were verified and informed consent was obtained for the procedure. ?The pump was interrogated and the residual amount of fluid was found to be 5.3 mL. SHE WAS POSITIONED prone on the bed AND THE AREA OF THE INTRATHECAL PUMP WAS PREPPED WITH CHLORAPREP. The fenestrated drape was sterilely applied over the area of the pump. Sterile gloves were worn and of the aspiration system was assembled containing 2 in 22 gauge noncoring needle, the needle was connected to extension tubing which was connected to the 20 cc sterile syringe. The pain pump was palpated under the skin in the patient's right buttock area. The needle was inserted through the skin and the central plug of the pain pump and fluid was aspirated. The clear fluid was going into the syringe the total amount of the fluid was 5.1 mL .. After that a new batch? of medication was obtained which was containing hydromorphone in concentration of 600 micro g per mL and bupivacain 10 mg per ml an addition of clonidine 180 micro g per mL. The admixture was made in 20 cc syringe prepared by [facility] compounding pharmacy. The syringe was connected to the bacterial filter, and then connected to the extension tubing. After that the medication in the syringe was slowly instilled into the pump with aspirations at 15 and 5 cc pemberton.? The pump was reprogrammed for the doses of continuous infusion of hydromorphone 120 mcg a day with corresponding dose of the bupivacaine and new clonidine, as well as she was given a bolus of 30 micro g of hydromorphone once a day with corresponding doses of bupivacaine and clonidine.. Coding Level of Care Code Est Pt Level 3 (51817) Procedure Only Diagnoses Spondylosis of lumbosacral spine with radiculopathy M47.27 Chronic pain syndrome G89.4 Status post total knee replacement, right Z96.651 Sacroiliitis M46.1 Pain of both sacroiliac joints M53.3
[2023-06-01 16:14] VITALS: BP 118/70; PULSE 75; RESP 16; O2SAT 97; BMI 30.8
== END 2023-06-01 16:06 | disposition home or self-care (01) ==
PROVIDERS: PCP Internal Medicine; Visit Provider Anesthesiology
DX: M47.27 Other spondylosis with radiculopathy, lumbosacral region (principal); G89.4 Chronic pain syndrome; Z96.651 Presence of right artificial knee joint; M46.1 Sacroiliitis, not elsewhere classified; M53.3 Sacrococcygeal disorders, not elsewhere classified; Z45.1 Encounter for adjustment and management of infusion pump
CPT/HCPCS: 62370; 99213

== ENCOUNTER → 2023-06-01 15:40 | Outpatient (BNVA) | payer OTHER, SELFPAY | PROVIDERS: PCP Internal Medicine; Visit Provider Anesthesiology | DX: Z45.89 Encounter for adjustment and management of other implanted devices (principal); M47.27 Other spondylosis with radiculopathy, lumbosacral region; M46.1 Sacroiliitis, not elsewhere classified; M53.3 Sacrococcygeal disorders, not elsewhere classified; G89.4 Chronic pain syndrome; Z96.651 Presence of right artificial knee joint | CPT/HCPCS: 62370; 99212 ==

== ENCOUNTER 2023-09-28 09:54 | Outpatient (AMB) | payer OTHER, SELFPAY ==
--- NOTE | 2023-09-28 10:32 | MHC.OFFVIS ---
Intake Visit Reasons: Follow Up Allergies Sulfa (Sulfonamide Antibiotics) Allergy (Mild, Verified 06/01/23 16:15) RASH,ITCHY, rash, rash HPI Comments Details: Debbie is on the phone today after 2 months of absence. She missed her last pain pump refill. She for 2 months was not available for any contacts. We actually requested local police to check on her, they did not find her available at home. Today she is calling us and her explanation was that there were several funerals of in the family that is why she could not go for pain medication refill in the pump. Unfortunately now the pump is for 2 months has been running dry. It is very likely it is dysfunctional at this moment. I told her that her 1st step would be to come here and have her pump to be read. After that I will make a decision what will be the next step with this pump [facility] Medical History (Updated 04/15/23 @ 08:51 by Marium Lincoln RN) Irregular heart rhythm History of seizures IBS (irritable bowel syndrome) GERD (gastroesophageal reflux disease) History of hepatitis C Facial palsy Migraines Anxiety and depression KIMBERLY (obstructive sleep apnea) Asthma History of COVID-19 Chronic pain syndrome Spondylosis of lumbosacral spine with radiculopathy Surgical History (Updated 06/02/23 @ 07:50 by Nato Gardner MD) Hx of surgical procedure Hx of left inguinal hernia repair Hx of appendectomy History of surgery History of surgery History of surgery History of bunionectomy Hx of arthroscopy of right knee Status post total knee replacement, right Social History Patient Tobacco Use Status: Former Tobacco user Tobacco use type: Cigarette Second Hand Smoke Exposure: No Review of Systems Const All systems reviewed & are unremarkable except as noted in HPI and below Telehealth Telehealth Telehealth Platform: Telephone Location of provider rendering services: practice address Location of patient: address on file Patient Identification confirmed using: Name, : Yes Telehealth method: voice only Patient verbally consented to treatment: Yes Patient verbally consented to billing insurance company: Yes Patient informed of any privacy concerns related to visit: Yes Assessment & Plan Assessment & Plan (1) Spondylosis of lumbosacral spine with radiculopathy: Code(s): M47.27 - Other spondylosis with radiculopathy, lumbosacral region Category: Medical (2) Chronic pain syndrome: Code(s): G89.4 - Chronic pain syndrome Category: Medical (3) Status post total knee replacement, right: Code(s): Z96.651 - Presence of right artificial knee joint Category: Surgical (4) Sacroiliitis: Code(s): M46.1 - Sacroiliitis, not elsewhere classified Category: Medical (5) Pain of both sacroiliac joints: Code(s): M53.3 - Sacrococcygeal disorders, not elsewhere classified Category: Medical Plan: The discussion about the pain pump and its functionality is as above. Unfortunately patient might require pump replacement surgery if the device is not functional. First step would be for the patient to come into this office and have her pump to be read. Plan The patient said to me by the phone that she will be in my office as soon as she can not. Patient Instructions: I here by testify that I spent 15 minutes in conversation with this patient as well as planning her care and organizing this note. Coding Level of Care Code Est Pt Level 3 (00549) Diagnoses Spondylosis of lumbosacral spine with radiculopathy M47.27 Chronic pain syndrome G89.4 Status post total knee replacement, right Z96.651 Sacroiliitis M46.1 Pain of both sacroiliac joints M53.3
== END 2023-09-28 10:32 | disposition home or self-care (01) ==
LOC: HO.PMC 09:54
PROVIDERS: PCP Internal Medicine; Visit Provider Anesthesiology
DX: M47.27 Other spondylosis with radiculopathy, lumbosacral region (principal); G89.4 Chronic pain syndrome; Z96.651 Presence of right artificial knee joint; M46.1 Sacroiliitis, not elsewhere classified; M53.3 Sacrococcygeal disorders, not elsewhere classified
CPT/HCPCS: 99213

== ENCOUNTER → 2023-09-28 09:54 | Outpatient (BNVA) | payer OTHER, SELFPAY | PROVIDERS: PCP Internal Medicine; Visit Provider Anesthesiology ==

== ENCOUNTER → 2023-09-30 10:26 | Outpatient (BNVA) | payer OTHER, SELFPAY | PROVIDERS: PCP Internal Medicine; Visit Provider Internal Medicine | DX: M47.27 Other spondylosis with radiculopathy, lumbosacral region (principal); M46.1 Sacroiliitis, not elsewhere classified; M53.3 Sacrococcygeal disorders, not elsewhere classified; G89.4 Chronic pain syndrome; Z96.651 Presence of right artificial knee joint; Z96.89 Presence of other specified functional implants | CPT/HCPCS: 62367; 99212 ==

== ENCOUNTER 2023-09-30 10:30 | Outpatient (AMB) | payer OTHER, SELFPAY ==
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
[2023-09-30 10:38] VITALS: BP 134/93; PULSE 89; O2SAT 96; BMI 34.4
== END 2023-09-30 10:54 | disposition home or self-care (01) ==
PROVIDERS: PCP Internal Medicine; Visit Provider Registered Nurse Emergency
DX: M47.27 Other spondylosis with radiculopathy, lumbosacral region (principal); G89.4 Chronic pain syndrome; Z96.651 Presence of right artificial knee joint; M46.1 Sacroiliitis, not elsewhere classified; M53.3 Sacrococcygeal disorders, not elsewhere classified; Z45.1 Encounter for adjustment and management of infusion pump
CPT/HCPCS: 62367; 99213

== ENCOUNTER 2023-10-03 09:51 | Outpatient (AMB) | payer OTHER, SELFPAY ==
--- NOTE | 2023-10-03 09:54 | MHC.OFFVIS ---
Vital Signs 10/03/23 10:01 Height 5 ft 3 in Weight 194 lb BMI 34.4 BP 128/88 Blood Pressure Location Lt brachial Position Sitting Respiration 16 Pulse 97 Pulse Source Pulse Oximeter Pulse Oximetry (%) 98 Oxygen Delivery Method Room Air Intake Visit Reasons: ITDD DISCUSSION Intake Note: Patient comes in for discussion. Reports pain 01/11. Allergies Sulfa (Sulfonamide Antibiotics) Allergy (Mild, Verified 10/03/23 10:05) RASH,ITCHY, rash, rash HPI Comments Details: Guadalupe presented to the office today with complains on severe intractable pain. For the past 2.5 months she did not fill up her pain pump and now she is getting her pain worse every day. We wanted to fill up her pain pump with medication day on the advice of technical support from [employer]. However unfortunately her pump medication . I will mathews her pain pump medication in here and I will invite her in 3 days to perform the pain pump refill. If she will not receive any pain relief I will consider pain pump peristaltic device broken and we will schedule her for the pump replacement. Prior: Debbie is on the phone today after 2 months of absence. She missed her last pain pump refill. She for 2 months was not available for any contacts. We actually requested local police to check on her, they did not find her available at home. Today she is calling us and her explanation was that there were several funerals of in the family that is why she could not go for pain medication refill in the pump. Unfortunately now the pump is for 2 months has been running dry. It is very likely it is dysfunctional at this moment. I told her that her 1st step would be to come here and have her pump to be read. After that I will make a decision what will be the next step with this pump [facility] Medical History (Updated 04/15/23 @ 08:51 by Marium Lincoln RN) Irregular heart rhythm History of seizures IBS (irritable bowel syndrome) GERD (gastroesophageal reflux disease) History of hepatitis C Facial palsy Migraines Anxiety and depression KIMBERLY (obstructive sleep apnea) Asthma History of COVID-19 Chronic pain syndrome Spondylosis of lumbosacral spine with radiculopathy Surgical History (Updated 06/02/23 @ 07:50 by Nato Gardner MD) Hx of surgical procedure Hx of left inguinal hernia repair Hx of appendectomy History of surgery History of surgery History of surgery History of bunionectomy Hx of arthroscopy of right knee Status post total knee replacement, right Social History Patient Tobacco Use Status: Former Tobacco user Tobacco use type: Cigarette Second Hand Smoke Exposure: No Review of Systems Const All systems reviewed & are unremarkable except as noted in HPI and below Physical Exam Vital Signs: Last Vital Signs Pulse 97 10/03/23 10:01 Resp 16 10/03/23 10:01 BP 128/88 10/03/23 10:01 Pulse Ox 98 10/03/23 10:01 Oxygen Delivery Method Room Air 10/03/23 10:01 BMI result Body Mass Index 34.4 Const Nutritional Appearance: average body habitus Orientation/consciousness: oriented to person and patient oriented x3 Eyes General: appearance normal, both eyes and all related structures Pupils: Equal, round and reactive pupils present EOM: EOMs intact bilaterally Neck Neck: Yes full ROM Chest Chest palpation & inspection: normal inspection of the chest Resp Effort & Inspection: normal respiratory effort, able to speak in complete sentences, normal respiratory pattern, no audible wheezes and no cough Cardio Jugular venous distension: no JVD GI Inspection: Yes normal to inspection Back/Spine/Pelvis Other: Tenderness of palpation of paraspinal spinal region lumbar spine no most strands of bilateral lower extremities. Reflexes are symmetrical and +2 bilaterally patellar and Achilles. Reports mostly axial pain. Reports pain radiation into the upper lumbar spine tenderness on palpation spreads into thoracic spine. Neuro General: oriented to person and patient oriented x3 Cranial nerves: Yes Equal, round and reactive pupils present Gait exam (Neuro): Normal gait present Motor exam (neuro): 5/5 motor strength present throughout Extrem General: No pedal edema Assessment & Plan Assessment & Plan (1) Spondylosis of lumbosacral spine with radiculopathy: Code(s): M47.27 - Other spondylosis with radiculopathy, lumbosacral region Category: Medical (2) Chronic pain syndrome: Code(s): G89.4 - Chronic pain syndrome Category: Medical (3) Status post total knee replacement, right: Code(s): Z96.651 - Presence of right artificial knee joint Category: Surgical (4) Sacroiliitis: Code(s): M46.1 - Sacroiliitis, not elsewhere classified Category: Medical (5) Pain of both sacroiliac joints: Code(s): M53.3 - Sacrococcygeal disorders, not elsewhere classified Category: Medical Plan The pain pump medication will be received in 2 -3 days. We will invite patient for the refill. Meanwhile to help her with intractable lower back pain I will prescribe her hydromorphone 2 mg Q 6 hours p.r.n. pain for the next 3 days. I will also prescribe her Narcan. I will see her in few days. Medications: New hydromorphone Partial Fill upon patient request. 2 mg PO Q6H PRN 12 tabs 0RF pain 3 days naloxone 4 mg/actuation (Narcan) spray 1 dose into ONE nostril; alternate nostrils w each dose until help arrives 4 mg intranasal Q2M PRN 2 ea 0RF opioid overdose 1 day Coding Level of Care Code Est Pt Level 3 (63913) Diagnoses Spondylosis of lumbosacral spine with radiculopathy M47.27 Chronic pain syndrome G89.4 Status post total knee replacement, right Z96.651 Sacroiliitis M46.1 Pain of both sacroiliac joints M53.3
[2023-10-03 10:01] VITALS: BP 128/88; PULSE 97; RESP 16; O2SAT 98; BMI 34.4
== END 2023-10-03 10:24 | disposition home or self-care (01) ==
PROVIDERS: PCP Internal Medicine; Visit Provider Anesthesiology
DX: M47.27 Other spondylosis with radiculopathy, lumbosacral region (principal); G89.4 Chronic pain syndrome; Z96.651 Presence of right artificial knee joint; M46.1 Sacroiliitis, not elsewhere classified; M53.3 Sacrococcygeal disorders, not elsewhere classified
CPT/HCPCS: 99213

== ENCOUNTER → 2023-10-03 09:51 | Outpatient (BNVA) | payer OTHER, SELFPAY | PROVIDERS: PCP Internal Medicine; Visit Provider Anesthesiology | DX: M47.27 Other spondylosis with radiculopathy, lumbosacral region (principal); G89.4 Chronic pain syndrome; M46.1 Sacroiliitis, not elsewhere classified; M53.3 Sacrococcygeal disorders, not elsewhere classified; Z45.1 Encounter for adjustment and management of infusion pump; Z96.651 Presence of right artificial knee joint | CPT/HCPCS: 99212 ==

== ENCOUNTER 2023-10-05 09:04 | Outpatient (AMB) | payer OTHER, SELFPAY ==
--- NOTE | 2023-10-05 09:11 | A.OFFVIS_ITS ---
Vital Signs 10/05/23 09:21 Height 5 ft 3 in Weight 194 lb 6 oz BMI 34.4 BP 118/76 Blood Pressure Location Lt brachial Position Sitting Respiration 16 Pulse 96 Pulse Source Pulse Oximeter Pulse Oximetry (%) 100 Oxygen Delivery Method Room Air Intake Visit Reasons: ITDD refill Intake Note: Patient comes in for intrathecal medication refill. Reports pain 01/11. Allergies Sulfa (Sulfonamide Antibiotics) Allergy (Mild, Verified 10/05/23 09:22) RASH,ITCHY, rash, rash HPI Comments Details: Guadalupe presented to the office today with complains on severe intractable pain. For the past 2.5 months she did not fill up her pain pump and now she is getting her pain worse every day. She came today for the pump refill. The refill dictation is as below. I will see this patient on Tuesday and I will adjust the doses of her medications. Prior: Debbie is on the phone today after 2 months of absence. She missed her last pain pump refill. She for 2 months was not available for any contacts. We actually requested local police to check on her, they did not find her available at home. Today she is calling us and her explanation was that there were several funerals of in the family that is why she could not go for pain medication refill in the pump. Unfortunately now the pump is for 2 months has been running dry. It is very likely it is dysfunctional at this moment. I told her that her 1st step would be to come here and have her pump to be read. After that I will make a decision what will be the next step with this pump [facility] Medical History (Updated 04/15/23 @ 08:51 by Marium Lincoln RN) Irregular heart rhythm History of seizures IBS (irritable bowel syndrome) GERD (gastroesophageal reflux disease) History of hepatitis C Facial palsy Migraines Anxiety and depression KIMBERLY (obstructive sleep apnea) Asthma History of COVID-19 Chronic pain syndrome Spondylosis of lumbosacral spine with radiculopathy Surgical History (Updated 06/02/23 @ 07:50 by Nato Gardner MD) Hx of surgical procedure Hx of left inguinal hernia repair Hx of appendectomy History of surgery History of surgery History of surgery History of bunionectomy Hx of arthroscopy of right knee Status post total knee replacement, right Social History Patient Tobacco Use Status: Former Tobacco user Tobacco use type: Cigarette Second Hand Smoke Exposure: No Review of Systems Const All systems reviewed & are unremarkable except as noted in HPI and below Physical Exam Vital Signs: Last Vital Signs Pulse 96 10/05/23 09:21 Resp 16 10/05/23 09:21 BP 118/76 10/05/23 09:21 Pulse Ox 100 10/05/23 09:21 Oxygen Delivery Method Room Air 10/05/23 09:21 BMI result Body Mass Index 34.4 Const Nutritional Appearance: average body habitus Orientation/consciousness: oriented to person and patient oriented x3 Eyes General: appearance normal, both eyes and all related structures Pupils: Equal, round and reactive pupils present EOM: EOMs intact bilaterally Neck Neck: Yes full ROM Chest Chest palpation & inspection: normal inspection of the chest Resp Effort & Inspection: normal respiratory effort, able to speak in complete sentences, normal respiratory pattern, no audible wheezes and no cough Cardio Jugular venous distension: no JVD GI Inspection: Yes normal to inspection Back/Spine/Pelvis Other: Tenderness of palpation of paraspinal spinal region lumbar spine no most strands of bilateral lower extremities. Reflexes are symmetrical and +2 bilaterally patellar and Achilles. Reports mostly axial pain. Reports pain radiation into the upper lumbar spine tenderness on palpation spreads into thoracic spine. Neuro General: oriented to person and patient oriented x3 Cranial nerves: Yes Equal, round and reactive pupils present Gait exam (Neuro): Normal gait present Motor exam (neuro): 5/5 motor strength present throughout Extrem General: No pedal edema Assessment & Plan Assessment & Plan (1) Spondylosis of lumbosacral spine with radiculopathy: Code(s): M47.27 - Other spondylosis with radiculopathy, lumbosacral region Category: Medical (2) Chronic pain syndrome: Code(s): G89.4 - Chronic pain syndrome Category: Medical Plan: ? Intrathecal pump refill. THE PATIENT CAME TODAY IN THE OR - PACU FOR THE CHANGE OF THE MEDICATION IN her PAIN PUMP. The name and date of were verified and informed consent was obtained for the procedure. ?The pump was interrogated and the residual amount of fluid was found to be 0 mL, empty alarm was audible every minute coming from the pump. SHE WAS POSITIONED prone on the bed AND THE AREA OF THE INTRATHECAL PUMP WAS PREPPED WITH CHLORAPREP. The fenestrated drape was sterilely applied over the area of the pump. Sterile gloves were worn and of the aspiration system was assembled containing 2 in 22 gauge noncoring needle, the needle was connected to extension tubing which was connected to the 20 cc sterile syringe. The pain pump was palpated under the skin in the patient's right buttock area. The needle was inserted through the skin and the central plug of the pain pump and fluid was aspirated. The clear fluid was going into the syringe the total amount of the fluid was 0 mL .. After that a new batch? of medication was obtained which was containing hydromorphone 600 micro g per mL, bupivacaine 10 milligrams/mL, clonidine 180 micro g per mL. The admixture was made in 20 cc syringe prepared by [facility] compounding pharmacy. The syringe was connected to the bacterial filter, and then connected to the extension tubing. After that the medication in the syringe was slowly instilled into the pump with aspirations at 15, 10, and 5 cc [place].? The pump was reprogrammed for the doses of continuous rate of 119.90 micro g a day of hydromorphone with corresponding 1.998 mg a day of bupivacaine and 35.97 micro g a day of clonidine. She was given 1 dose of demand hydromorphone 30 micro g with corresponding bupivacaine 0.5 mg and clonidine 9 micro g 1 dose in 24 hours. (3) Status post total knee replacement, right: Code(s): Z96.651 - Presence of right artificial knee joint Category: Surgical (4) Sacroiliitis: Code(s): M46.1 - Sacroiliitis, not elsewhere classified Category: Medical (5) Pain of both sacroiliac joints: Code(s): M53.3 - Sacrococcygeal disorders, not elsewhere classified Category: Medical Plan The pain pump medication received today the pain pump is filled see as above. Next appointment on Tuesday10/10/2023 to adjust the continuous and on demand medications. Coding Level of Care Code Est Pt Level 3 (74524) Procedure Only Diagnoses Spondylosis of lumbosacral spine with radiculopathy M47.27 Chronic pain syndrome G89.4 Status post total knee replacement, right Z96.651 Sacroiliitis M46.1 Pain of both sacroiliac joints M53.3
[2023-10-05 09:21] VITALS: BP 118/76; PULSE 96; RESP 16; O2SAT 100; BMI 34.4
== END 2023-10-05 09:46 | disposition home or self-care (01) ==
PROVIDERS: PCP Internal Medicine; Visit Provider Anesthesiology
DX: M47.27 Other spondylosis with radiculopathy, lumbosacral region (principal); G89.4 Chronic pain syndrome; Z96.651 Presence of right artificial knee joint; M46.1 Sacroiliitis, not elsewhere classified; Z45.1 Encounter for adjustment and management of infusion pump
CPT/HCPCS: 62370; 99213

== ENCOUNTER → 2023-10-05 09:04 | Outpatient (BNVA) | payer OTHER, SELFPAY | PROVIDERS: PCP Internal Medicine; Visit Provider Anesthesiology | DX: Z45.1 Encounter for adjustment and management of infusion pump (principal); G89.4 Chronic pain syndrome; M47.27 Other spondylosis with radiculopathy, lumbosacral region; M46.1 Sacroiliitis, not elsewhere classified; M53.3 Sacrococcygeal disorders, not elsewhere classified; Z96.651 Presence of right artificial knee joint | CPT/HCPCS: 62370; 99212 ==

== ENCOUNTER 2023-10-10 10:39 | Outpatient (AMB) | payer OTHER, SELFPAY ==
--- NOTE | 2023-10-10 10:50 | MHC.OFFVIS ---
Vital Signs 10/10/23 10:51 Height 5 ft 3 in Weight 194 lb 6 oz BMI 34.4 BP 96/60 Blood Pressure Location Lt brachial Position Sitting Respiration 14 Pulse 64 Pulse Source Pulse Oximeter Pulse Oximetry (%) 94 Oxygen Delivery Method Room Air Intake Visit Reasons: PAIN PUMP REVISION Intake Note: Patient comes in for pain pump adjustment. Reports pain 01/11. Allergies Sulfa (Sulfonamide Antibiotics) Allergy (Mild, Verified 10/10/23 10:52) RASH,ITCHY, rash, rash HPI Comments Details: Guadalupe presented to the office today with complains on severe intractable pain. She had her pump interrogated today and the doses were adjusted today. Instead of 1 dose in 24 hours of hydromorphone 30 micro g once a day she will be able to receive 30 micro g of hydromorphone with corresponding doses of bupivacaine and clonidine twice a day with the interval of 8 hours. Prior: Debbie is on the phone today after 2 months of absence. She missed her last pain pump refill. She for 2 months was not available for any contacts. We actually requested local police to check on her, they did not find her available at home. Today she is calling us and her explanation was that there were several funerals of in the family that is why she could not go for pain medication refill in the pump. Unfortunately now the pump is for 2 months has been running dry. It is very likely it is dysfunctional at this moment. I told her that her 1st step would be to come here and have her pump to be read. After that I will make a decision what will be the next step with this pump [facility] Medical History (Updated 04/15/23 @ 08:51 by Marium Lincoln RN) Irregular heart rhythm History of seizures IBS (irritable bowel syndrome) GERD (gastroesophageal reflux disease) History of hepatitis C Facial palsy Migraines Anxiety and depression KIMBERLY (obstructive sleep apnea) Asthma History of COVID-19 Chronic pain syndrome Spondylosis of lumbosacral spine with radiculopathy Surgical History (Updated 06/02/23 @ 07:50 by Nato Gardner MD) Hx of surgical procedure Hx of left inguinal hernia repair Hx of appendectomy History of surgery History of surgery History of surgery History of bunionectomy Hx of arthroscopy of right knee Status post total knee replacement, right Social History Patient Tobacco Use Status: Former Tobacco user Tobacco use type: Cigarette Second Hand Smoke Exposure: No Review of Systems Const All systems reviewed & are unremarkable except as noted in HPI and below Physical Exam Vital Signs: Last Vital Signs Pulse 64 10/10/23 10:51 Resp 14 10/10/23 10:51 BP 96/60 10/10/23 10:51 Pulse Ox 94 10/10/23 10:51 Oxygen Delivery Method Room Air 10/10/23 10:51 BMI result Body Mass Index 34.4 Const Nutritional Appearance: average body habitus Orientation/consciousness: oriented to person and patient oriented x3 Eyes General: appearance normal, both eyes and all related structures Pupils: Equal, round and reactive pupils present EOM: EOMs intact bilaterally Neck Neck: Yes full ROM Chest Chest palpation & inspection: normal inspection of the chest Resp Effort & Inspection: normal respiratory effort, able to speak in complete sentences, normal respiratory pattern, no audible wheezes and no cough Cardio Jugular venous distension: no JVD GI Inspection: Yes normal to inspection Back/Spine/Pelvis Other: Tenderness of palpation of paraspinal spinal region lumbar spine no most strands of bilateral lower extremities. Reflexes are symmetrical and +2 bilaterally patellar and Achilles. Reports mostly axial pain. Reports pain radiation into the upper lumbar spine tenderness on palpation spreads into thoracic spine. Neuro General: oriented to person and patient oriented x3 Cranial nerves: Yes Equal, round and reactive pupils present Gait exam (Neuro): Normal gait present Motor exam (neuro): 5/5 motor strength present throughout Extrem General: No pedal edema Assessment & Plan Assessment & Plan (1) Spondylosis of lumbosacral spine with radiculopathy: Code(s): M47.27 - Other spondylosis with radiculopathy, lumbosacral region Category: Medical (2) Chronic pain syndrome: Code(s): G89.4 - Chronic pain syndrome Category: Medical (3) Status post total knee replacement, right: Code(s): Z96.651 - Presence of right artificial knee joint Category: Surgical (4) Sacroiliitis: Code(s): M46.1 - Sacroiliitis, not elsewhere classified Category: Medical (5) Pain of both sacroiliac joints: Code(s): M53.3 - Sacrococcygeal disorders, not elsewhere classified Category: Medical Plan The pain pump medication received today the pain pump is filled see as above. Her pump refill is scheduled on on before 12/07/2023. However if escalation of the medication will be required and doses of the medication will be changed her pump refill maybe scheduled earlier. Coding Level of Care Code Est Pt Level 3 (64363) Diagnoses Spondylosis of lumbosacral spine with radiculopathy M47.27 Chronic pain syndrome G89.4 Status post total knee replacement, right Z96.651 Sacroiliitis M46.1 Pain of both sacroiliac joints M53.3
[2023-10-10 10:51] VITALS: BP 96/60; PULSE 64; RESP 14; O2SAT 94; BMI 34.4
== END 2023-10-10 11:38 | disposition home or self-care (01) ==
PROVIDERS: PCP Internal Medicine; Visit Provider Anesthesiology
DX: M47.27 Other spondylosis with radiculopathy, lumbosacral region (principal); G89.4 Chronic pain syndrome; Z96.651 Presence of right artificial knee joint; M46.1 Sacroiliitis, not elsewhere classified; Z45.1 Encounter for adjustment and management of infusion pump; M53.3 Sacrococcygeal disorders, not elsewhere classified
CPT/HCPCS: 62368; 99213

== ENCOUNTER → 2023-10-10 10:39 | Outpatient (BNVA) | payer OTHER, SELFPAY | PROVIDERS: PCP Internal Medicine; Visit Provider Anesthesiology | DX: Z45.1 Encounter for adjustment and management of infusion pump (principal); G89.4 Chronic pain syndrome; M47.27 Other spondylosis with radiculopathy, lumbosacral region; M46.1 Sacroiliitis, not elsewhere classified; M53.3 Sacrococcygeal disorders, not elsewhere classified; Z96.651 Presence of right artificial knee joint | CPT/HCPCS: 62368; 99212 ==

== ENCOUNTER 2023-10-13 11:34 | Outpatient (AMB) | payer OTHER, SELFPAY ==
--- NOTE | 2023-10-13 11:35 | MHC.OFFVIS ---
Vital Signs 10/13/23 11:51 Height 5 ft 3 in Weight 194 lb BMI 34.4 BP 124/86 Blood Pressure Location Lt brachial Position Sitting Respiration 16 Pulse 80 Pulse Source Pulse Oximeter Pulse Oximetry (%) 96 Oxygen Delivery Method Room Air Intake Visit Reasons: FOLLOW UP Intake Note: Patient comes for ITDD pain pump adjustment. Reports pain 9/. Allergies Sulfa (Sulfonamide Antibiotics) Allergy (Mild, Verified 10/13/23 11:51) RASH,ITCHY, rash, rash HPI Comments Details: Guadalupe presented to the office today with reports that her pain got little bit better. After application of PTM doses she received about 1-2 hours of pain relief. She reports better mobility and better activities of daily living after increase of the doses. The pump interrogation and planning see as below. Prior: Debbie is on the phone today after 2 months of absence. She missed her last pain pump refill. She for 2 months was not available for any contacts. We actually requested local police to check on her, they did not find her available at home. Today she is calling us and her explanation was that there were several funerals of in the family that is why she could not go for pain medication refill in the pump. Unfortunately now the pump is for 2 months has been running dry. It is very likely it is dysfunctional at this moment. I told her that her 1st step would be to come here and have her pump to be read. After that I will make a decision what will be the next step with this pump [facility] Medical History (Updated 04/15/23 @ 08:51 by Marium Lincoln RN) Irregular heart rhythm History of seizures IBS (irritable bowel syndrome) GERD (gastroesophageal reflux disease) History of hepatitis C Facial palsy Migraines Anxiety and depression KIMBERLY (obstructive sleep apnea) Asthma History of COVID-19 Chronic pain syndrome Spondylosis of lumbosacral spine with radiculopathy Surgical History (Updated 06/02/23 @ 07:50 by Nato Gardner MD) Hx of surgical procedure Hx of left inguinal hernia repair Hx of appendectomy History of surgery History of surgery History of surgery History of bunionectomy Hx of arthroscopy of right knee Status post total knee replacement, right Social History Patient Tobacco Use Status: Former Tobacco user Tobacco use type: Cigarette Second Hand Smoke Exposure: No Review of Systems Const All systems reviewed & are unremarkable except as noted in HPI and below Physical Exam Vital Signs: Last Vital Signs Pulse 80 10/13/23 11:51 Resp 16 10/13/23 11:51 BP 124/86 10/13/23 11:51 Pulse Ox 96 10/13/23 11:51 Oxygen Delivery Method Room Air 10/13/23 11:51 BMI result Body Mass Index 34.4 Const Nutritional Appearance: average body habitus Orientation/consciousness: oriented to person and patient oriented x3 Eyes General: appearance normal, both eyes and all related structures Pupils: Equal, round and reactive pupils present EOM: EOMs intact bilaterally Neck Neck: Yes full ROM Chest Chest palpation & inspection: normal inspection of the chest Resp Effort & Inspection: normal respiratory effort, able to speak in complete sentences, normal respiratory pattern, no audible wheezes and no cough Cardio Jugular venous distension: no JVD GI Inspection: Yes normal to inspection Back/Spine/Pelvis Other: Tenderness of palpation of paraspinal spinal region lumbar spine no most strands of bilateral lower extremities. Reflexes are symmetrical and +2 bilaterally patellar and Achilles. Reports mostly axial pain. Reports pain radiation into the upper lumbar spine tenderness on palpation spreads into thoracic spine. Neuro General: oriented to person and patient oriented x3 Cranial nerves: Yes Equal, round and reactive pupils present Gait exam (Neuro): Normal gait present Motor exam (neuro): 5/5 motor strength present throughout Extrem General: No pedal edema Assessment & Plan Assessment & Plan (1) Spondylosis of lumbosacral spine with radiculopathy: Code(s): M47.27 - Other spondylosis with radiculopathy, lumbosacral region Category: Medical (2) Chronic pain syndrome: Code(s): G89.4 - Chronic pain syndrome Category: Medical (3) Status post total knee replacement, right: Code(s): Z96.651 - Presence of right artificial knee joint Category: Surgical (4) Sacroiliitis: Code(s): M46.1 - Sacroiliitis, not elsewhere classified Category: Medical (5) Pain of both sacroiliac joints: Code(s): M53.3 - Sacrococcygeal disorders, not elsewhere classified Category: Medical Plan: Prolonged and detailed conversation was held today with the patient. I explained to her that if she will continue to visit us and we continued to adjust her medication in the pain pump, just concentration and adjust her adjuvant bupivacaine and clonidine she eventually may become very comfortable with her intrathecal pain pump. However for this she needs to visit us often and avoid cancelling the appointment. Plan Office procedure: The patient's pump was interrogated. The previous doses of the medications were continuous hydromorphone 120 micro g per day with corresponding 2 mg of bupivacaine and 36 micro g of clonidine. PTM doses were hydromorphone 30 micro g with corresponding doses of the bupivacaine and clonidine given to the patient twice a day with lockout interval 8 hours, 2 doses in 24 hours. Today we increased PTM dose to 48 micro g per application same 2 doses a day with 1 dose in 8 hours. Patient Instructions: I here by testify that I spent 35 minutes in conversation with this patient as well as planning her care and organizing this note. Coding Level of Care Code Est Pt Level 4 (38387) Procedure Only Diagnoses Spondylosis of lumbosacral spine with radiculopathy M47.27 Chronic pain syndrome G89.4 Status post total knee replacement, right Z96.651 Sacroiliitis M46.1 Pain of both sacroiliac joints M53.3
[2023-10-13 11:51] VITALS: BP 124/86; PULSE 80; RESP 16; O2SAT 96; BMI 34.4
== END 2023-10-13 12:12 | disposition home or self-care (01) ==
PROVIDERS: PCP Internal Medicine; Visit Provider Anesthesiology
DX: M47.27 Other spondylosis with radiculopathy, lumbosacral region (principal); G89.4 Chronic pain syndrome; Z96.651 Presence of right artificial knee joint; M46.1 Sacroiliitis, not elsewhere classified; Z45.1 Encounter for adjustment and management of infusion pump; M53.3 Sacrococcygeal disorders, not elsewhere classified
CPT/HCPCS: 62368; 99214

== ENCOUNTER → 2023-10-13 11:34 | Outpatient (BNVA) | payer OTHER, SELFPAY | PROVIDERS: PCP Internal Medicine; Visit Provider Anesthesiology | DX: M47.27 Other spondylosis with radiculopathy, lumbosacral region (principal); M53.3 Sacrococcygeal disorders, not elsewhere classified; M46.1 Sacroiliitis, not elsewhere classified; G89.4 Chronic pain syndrome; Z96.651 Presence of right artificial knee joint | CPT/HCPCS: 62368; 99212 ==

== ENCOUNTER 2023-10-17 11:25 | Outpatient (AMB) | payer OTHER, SELFPAY ==
--- NOTE | 2023-10-17 11:31 | MHC.OFFVIS ---
Vital Signs 10/17/23 11:44 Height 5 ft 3 in Weight 194 lb 4 oz BMI 34.4 BP 124/70 Blood Pressure Location Lt brachial Position Sitting Respiration 14 Pulse 63 Pulse Source Pulse Oximeter Pulse Oximetry (%) 100 Oxygen Delivery Method Room Air Intake Visit Reasons: PUMP FOLLOW UP Intake Note: Patient comes in for pain pump adjustments. Reports pain 9/10. Allergies Sulfa (Sulfonamide Antibiotics) Allergy (Mild, Verified 10/17/23 11:44) RASH,ITCHY, rash, rash HPI Comments Details: And I again came to my office to receive yet another escalation of the pain medication. Her pain pump works appropriately. Does not seem to be any problems with the medication delivery she reports today pain 7 to 8/10 which is significant reduction from previous 10. The pump was interrogated and the doses were change see as below. I will see her in few days to perform another escalation. Prior: Debbie is on the phone today after 2 months of absence. She missed her last pain pump refill. She for 2 months was not available for any contacts. We actually requested local police to check on her, they did not find her available at home. Today she is calling us and her explanation was that there were several funerals of in the family that is why she could not go for pain medication refill in the pump. Unfortunately now the pump is for 2 months has been running dry. It is very likely it is dysfunctional at this moment. I told her that her 1st step would be to come here and have her pump to be read. After that I will make a decision what will be the next step with this pump [facility] Medical History (Updated 04/15/23 @ 08:51 by Marium Licnoln RN) Irregular heart rhythm History of seizures IBS (irritable bowel syndrome) GERD (gastroesophageal reflux disease) History of hepatitis C Facial palsy Migraines Anxiety and depression KIMBERLY (obstructive sleep apnea) Asthma History of COVID-19 Chronic pain syndrome Spondylosis of lumbosacral spine with radiculopathy Surgical History (Updated 06/02/23 @ 07:50 by Nato Gardner MD) Hx of surgical procedure Hx of left inguinal hernia repair Hx of appendectomy History of surgery History of surgery History of surgery History of bunionectomy Hx of arthroscopy of right knee Status post total knee replacement, right Social History Patient Tobacco Use Status: Former Tobacco user Tobacco use type: Cigarette Second Hand Smoke Exposure: No Review of Systems Const All systems reviewed & are unremarkable except as noted in HPI and below Physical Exam Vital Signs: Last Vital Signs Pulse 63 10/17/23 11:44 Resp 14 10/17/23 11:44 BP 124/70 10/17/23 11:44 Pulse Ox 100 10/17/23 11:44 Oxygen Delivery Method Room Air 10/17/23 11:44 BMI result Body Mass Index 34.4 Const Nutritional Appearance: average body habitus Orientation/consciousness: oriented to person and patient oriented x3 Eyes General: appearance normal, both eyes and all related structures Pupils: Equal, round and reactive pupils present EOM: EOMs intact bilaterally Neck Neck: Yes full ROM Chest Chest palpation & inspection: normal inspection of the chest Resp Effort & Inspection: normal respiratory effort, able to speak in complete sentences, normal respiratory pattern, no audible wheezes and no cough Cardio Jugular venous distension: no JVD GI Inspection: Yes normal to inspection Back/Spine/Pelvis Other: Tenderness of palpation of paraspinal spinal region lumbar spine no most strands of bilateral lower extremities. Reflexes are symmetrical and +2 bilaterally patellar and Achilles. Reports mostly axial pain. Reports pain radiation into the upper lumbar spine tenderness on palpation spreads into thoracic spine. Neuro General: oriented to person and patient oriented x3 Cranial nerves: Yes Equal, round and reactive pupils present Gait exam (Neuro): Normal gait present Motor exam (neuro): 5/5 motor strength present throughout Extrem General: No pedal edema Assessment & Plan Assessment & Plan (1) Spondylosis of lumbosacral spine with radiculopathy: Code(s): M47.27 - Other spondylosis with radiculopathy, lumbosacral region Category: Medical (2) Chronic pain syndrome: Code(s): G89.4 - Chronic pain syndrome Category: Medical (3) Status post total knee replacement, right: Code(s): Z96.651 - Presence of right artificial knee joint Category: Surgical (4) Sacroiliitis: Code(s): M46.1 - Sacroiliitis, not elsewhere classified Category: Medical (5) Pain of both sacroiliac joints: Code(s): M53.3 - Sacrococcygeal disorders, not elsewhere classified Category: Medical Plan: I will see the patient in in the office in few days and we will continue escalation of the opioid medications until the patient is comfortable. Plan Office procedure: The patient's pump was interrogated. The previous doses of the medications were continuous hydromorphone 120 micro g per day with corresponding 2 mg of bupivacaine and 36 micro g of clonidine. PTM doses were hydromorphone 47 micro g with corresponding doses of the bupivacaine and clonidine given to the patient twice a day with lockout interval 8 hours, 2 doses in 24 hours. Today we increased PTM dose to 72 micro g per application same 2 doses a day with 1 dose in 8 hours. Patient Instructions: I here by testify that I spent 32 minutes in conversation with this patient as well as planning her care and organizing this note. Coding Level of Care Code Est Pt Level 4 (85653) Procedure Only Diagnoses Spondylosis of lumbosacral spine with radiculopathy M47.27 Chronic pain syndrome G89.4 Status post total knee replacement, right Z96.651 Sacroiliitis M46.1 Pain of both sacroiliac joints M53.3
[2023-10-17 11:44] VITALS: BP 124/70; PULSE 63; RESP 14; O2SAT 100; BMI 34.4
== END 2023-10-17 12:01 | disposition home or self-care (01) ==
PROVIDERS: PCP Internal Medicine; Visit Provider Anesthesiology
DX: M47.27 Other spondylosis with radiculopathy, lumbosacral region (principal); G89.4 Chronic pain syndrome; Z96.651 Presence of right artificial knee joint; M46.1 Sacroiliitis, not elsewhere classified; M53.3 Sacrococcygeal disorders, not elsewhere classified; Z45.1 Encounter for adjustment and management of infusion pump
CPT/HCPCS: 62367; 99214

== ENCOUNTER → 2023-10-17 11:25 | Outpatient (BNVA) | payer OTHER, SELFPAY | PROVIDERS: PCP Internal Medicine; Visit Provider Anesthesiology | DX: Z45.89 Encounter for adjustment and management of other implanted devices (principal); M47.27 Other spondylosis with radiculopathy, lumbosacral region; M53.3 Sacrococcygeal disorders, not elsewhere classified; M46.1 Sacroiliitis, not elsewhere classified; G89.4 Chronic pain syndrome; Z79.891 Long term (current) use of opiate analgesic; Z96.651 Presence of right artificial knee joint | CPT/HCPCS: 62367; 99212 ==

== ENCOUNTER 2023-10-21 11:28 | Outpatient (AMB) | payer OTHER, SELFPAY ==
--- NOTE | 2023-10-21 11:30 | A.OFFVIS_ITS ---
Vital Signs 10/21/23 11:35 Height 5 ft 3 in Weight 194 lb BMI 34.4 BP 153/76 H Blood Pressure Location Rt brachial Position Sitting Pulse 84 Pulse Source Pulse Oximeter Pulse Oximetry (%) 97 Oxygen Delivery Method Room Air Intake Visit Reasons: pain pump adjustment Intake Note: Pain today 11/11 Compliance Lead Required: No Accompanied by: Self / Same As Patient Allergies Sulfa (Sulfonamide Antibiotics) Allergy (Mild, Verified 10/21/23 11:37) RASH,ITCHY, rash, rash HPI Comments Details: Guadalupe again came to my office to receive yet another escalation of the pain medication. Her pain pump works appropriately. Does not seem to be any problems with the medication delivery she reports today pain 7 to 8/10 which is significant reduction from previous 01/11. The pump was interrogated and the doses were changed. See the pump adjustment as below. With her pump adjusted she will be scheduled for pump refill earlier on 11/16/2023. Prior: Debbie is on the phone today after 2 months of absence. She missed her last pain pump refill. She for 2 months was not available for any contacts. We actually requested local police to check on her, they did not find her available at home. Today she is calling us and her explanation was that there were several funerals of in the family that is why she could not go for pain medication refill in the pump. Unfortunately now the pump is for 2 months has been running dry. It is very likely it is dysfunctional at this moment. I told her that her 1st step would be to come here and have her pump to be read. After that I will make a decision what will be the next step with this pump [facility] Medical History (Updated 04/15/23 @ 08:51 by Marium Lincoln RN) Irregular heart rhythm History of seizures IBS (irritable bowel syndrome) GERD (gastroesophageal reflux disease) History of hepatitis C Facial palsy Migraines Anxiety and depression KIMBERLY (obstructive sleep apnea) Asthma History of COVID-19 Chronic pain syndrome Spondylosis of lumbosacral spine with radiculopathy Surgical History (Updated 06/02/23 @ 07:50 by Nato Gardner MD) Hx of surgical procedure Hx of left inguinal hernia repair Hx of appendectomy History of surgery History of surgery History of surgery History of bunionectomy Hx of arthroscopy of right knee Status post total knee replacement, right Social History Patient Tobacco Use Status: Former Tobacco user Tobacco use type: Cigarette Second Hand Smoke Exposure: No Review of Systems Const All systems reviewed & are unremarkable except as noted in HPI and below Physical Exam Vital Signs: Last Vital Signs Pulse 84 10/21/23 11:35 BP 153/76 H 10/21/23 11:35 Pulse Ox 97 10/21/23 11:35 Oxygen Delivery Method Room Air 10/21/23 11:35 BMI result Body Mass Index 34.4 Const Nutritional Appearance: average body habitus Orientation/consciousness: oriented to person and patient oriented x3 Eyes General: appearance normal, both eyes and all related structures Pupils: Equal, round and reactive pupils present EOM: EOMs intact bilaterally Neck Neck: Yes full ROM Chest Chest palpation & inspection: normal inspection of the chest Resp Effort & Inspection: normal respiratory effort, able to speak in complete sentences, normal respiratory pattern, no audible wheezes and no cough Cardio Jugular venous distension: no JVD GI Inspection: Yes normal to inspection Back/Spine/Pelvis Other: Tenderness of palpation of paraspinal spinal region lumbar spine no most strands of bilateral lower extremities. Reflexes are symmetrical and +2 bilaterally patellar and Achilles. Reports mostly axial pain. Reports pain radiation into the upper lumbar spine tenderness on palpation spreads into thoracic spine. Neuro General: oriented to person and patient oriented x3 Cranial nerves: Yes Equal, round and reactive pupils present Gait exam (Neuro): Normal gait present Motor exam (neuro): 5/5 motor strength present throughout Extrem General: No pedal edema Assessment & Plan Assessment & Plan (1) Spondylosis of lumbosacral spine with radiculopathy: Code(s): M47.27 - Other spondylosis with radiculopathy, lumbosacral region Category: Medical (2) Chronic pain syndrome: Code(s): G89.4 - Chronic pain syndrome Category: Medical (3) Status post total knee replacement, right: Code(s): Z96.651 - Presence of right artificial knee joint Category: Surgical (4) Sacroiliitis: Code(s): M46.1 - Sacroiliitis, not elsewhere classified Category: Medical (5) Pain of both sacroiliac joints: Code(s): M53.3 - Sacrococcygeal disorders, not elsewhere classified Category: Medical Plan: The pump adjustment will be done on 11/16/2023 and the doses of the medications will be increased as on demand bolus dose from 90 micro g to 120 micro g Plan Office procedure: The patient's pump was interrogated. The previous doses of the medications were continuous hydromorphone 120 micro g per day with corresponding 2 mg of bupivacaine and 36 micro g of clonidine. PTM doses were hydromorphone 72 micro g with corresponding doses of the bupivacaine and clonidine given to the patient twice a day with lockout interval 8 hours, 2 doses in 24 hours. Today we increased PTM dose to 90 micro g per application same 2 doses a day with 1 dose in 8 hours. Coding Level of Care Code Est Pt Level 3 (43322) Procedure Only Diagnoses Spondylosis of lumbosacral spine with radiculopathy M47.27 Chronic pain syndrome G89.4 Status post total knee replacement, right Z96.651 Sacroiliitis M46.1 Pain of both sacroiliac joints M53.3
[2023-10-21 11:35] VITALS: BP 153/76; PULSE 84; O2SAT 97; BMI 34.4
== END 2023-10-21 12:00 | disposition home or self-care (01) ==
PROVIDERS: PCP Internal Medicine; Visit Provider Anesthesiology
DX: M47.27 Other spondylosis with radiculopathy, lumbosacral region (principal); G89.4 Chronic pain syndrome; Z96.651 Presence of right artificial knee joint; M46.1 Sacroiliitis, not elsewhere classified; Z45.1 Encounter for adjustment and management of infusion pump; M53.3 Sacrococcygeal disorders, not elsewhere classified
CPT/HCPCS: 62367; 99213

== ENCOUNTER → 2023-10-21 11:28 | Outpatient (BNVA) | payer OTHER, SELFPAY | PROVIDERS: PCP Internal Medicine; Visit Provider Anesthesiology | DX: M47.27 Other spondylosis with radiculopathy, lumbosacral region (principal); G89.4 Chronic pain syndrome; M46.1 Sacroiliitis, not elsewhere classified; M53.3 Sacrococcygeal disorders, not elsewhere classified; Z45.1 Encounter for adjustment and management of infusion pump; Z96.651 Presence of right artificial knee joint; Z79.899 Other long term (current) drug therapy | CPT/HCPCS: 62367; 99212 ==

== ENCOUNTER 2023-11-10 13:59 | Outpatient (AMB) | payer OTHER, SELFPAY ==
--- NOTE | 2023-11-10 14:07 | MHC.OFFVIS ---
Vital Signs 11/10/23 15:51 Height 5 ft 3 in Weight 177 lb 6 oz BMI 31.4 BP 104/64 Blood Pressure Location Lt brachial Position Sitting Respiration 16 Pulse 73 Pulse Source Pulse Oximeter Pulse Oximetry (%) 94 Oxygen Delivery Method Room Air Intake Visit Reasons: PUMP REFILL Intake Note: Patient comes in for intrathecal medication refill. Reports pain 12/12. Allergies Sulfa (Sulfonamide Antibiotics) Allergy (Mild, Verified 11/10/23 15:53) RASH,ITCHY, rash, rash HPI Comments Details: Debbie is here in the office today to refill the medication in her pain pump. We increased concentration of the medication to allow her to come less frequently in the office. She will receive new batch of the medication which will comprise of 1200 micro g of hydromorphone, 360 micro g of clonidine and 20 mg per mL of bupivacaine. She reports now better pain control. We will continue with escalation of the opioid medications. This time I will keep the dose of the medication 100 micro g a day hydromorphone, and on demand I did increase the dose of the medication from 90 micro g per applications to 125 micro g per application. Because of the increase of the concentration she was given 42 hours bridge bolus. Her pain pump works appropriately. Her pump refill will be scheduled on 01/12/2024.. Prior: Debbie is on the phone today after 2 months of absence. She missed her last pain pump refill. She for 2 months was not available for any contacts. We actually requested local police to check on her, they did not find her available at home. Today she is calling us and her explanation was that there were several funerals of in the family that is why she could not go for pain medication refill in the pump. Unfortunately now the pump is for 2 months has been running dry. It is very likely it is dysfunctional at this moment. I told her that her 1st step would be to come here and have her pump to be read. After that I will make a decision what will be the next step with this pump [facility] Medical History (Updated 04/15/23 @ 08:51 by Marium Lincoln RN) Irregular heart rhythm History of seizures IBS (irritable bowel syndrome) GERD (gastroesophageal reflux disease) History of hepatitis C Facial palsy Migraines Anxiety and depression KIMBERLY (obstructive sleep apnea) Asthma History of COVID-19 Chronic pain syndrome Spondylosis of lumbosacral spine with radiculopathy Surgical History (Updated 06/02/23 @ 07:50 by Nato Gardner MD) Hx of surgical procedure Hx of left inguinal hernia repair Hx of appendectomy History of surgery History of surgery History of surgery History of bunionectomy Hx of arthroscopy of right knee Status post total knee replacement, right Social History Patient Tobacco Use Status: Former Tobacco user Tobacco use type: Cigarette Second Hand Smoke Exposure: No Review of Systems Const All systems reviewed & are unremarkable except as noted in HPI and below Physical Exam Vital Signs: Last Vital Signs Pulse 73 11/10/23 15:51 Resp 16 11/10/23 15:51 BP 104/64 11/10/23 15:51 Pulse Ox 94 11/10/23 15:51 Oxygen Delivery Method Room Air 11/10/23 15:51 BMI result Body Mass Index 31.4 Const Nutritional Appearance: average body habitus Orientation/consciousness: oriented to person and patient oriented x3 Eyes General: appearance normal, both eyes and all related structures Pupils: Equal, round and reactive pupils present EOM: EOMs intact bilaterally Neck Neck: Yes full ROM Chest Chest palpation & inspection: normal inspection of the chest Resp Effort & Inspection: normal respiratory effort, able to speak in complete sentences, normal respiratory pattern, no audible wheezes and no cough Cardio Jugular venous distension: no JVD GI Inspection: Yes normal to inspection Back/Spine/Pelvis Other: Tenderness of palpation of paraspinal spinal region lumbar spine no most strands of bilateral lower extremities. Reflexes are symmetrical and +2 bilaterally patellar and Achilles. Reports mostly axial pain. Reports pain radiation into the upper lumbar spine tenderness on palpation spreads into thoracic spine. Neuro General: oriented to person and patient oriented x3 Cranial nerves: Yes Equal, round and reactive pupils present Gait exam (Neuro): Normal gait present Motor exam (neuro): 5/5 motor strength present throughout Extrem General: No pedal edema Assessment & Plan Assessment & Plan (1) Spondylosis of lumbosacral spine with radiculopathy: Code(s): M47.27 - Other spondylosis with radiculopathy, lumbosacral region Category: Medical (2) Chronic pain syndrome: Code(s): G89.4 - Chronic pain syndrome Category: Medical Plan: The patient feels improvement with her pain syndrome. The doses of the medications increase will be continued until patient's satisfaction. Today's adjustment of the doses see as below. The concentration was changed by increasing each of the medication concentration by 2 fold, she was given a bridge bolus of 42 hours for that. (3) Status post total knee replacement, right: Code(s): Z96.651 - Presence of right artificial knee joint Category: Surgical (4) Sacroiliitis: Code(s): M46.1 - Sacroiliitis, not elsewhere classified Category: Medical (5) Pain of both sacroiliac joints: Code(s): M53.3 - Sacrococcygeal disorders, not elsewhere classified Category: Medical Plan: Next refill appointment will be scheduled on 01/12/2024. Plan ? Intrathecal pump refill. THE PATIENT CAME TODAY IN THE office FOR THE CHANGE OF THE MEDICATION IN her PAIN PUMP. The name and date of were verified and informed consent was obtained for the procedure. ?The pump was interrogated and the residual amount of fluid was found to be 10.4 mL. SHE WAS POSITIONED prone on the bed AND THE AREA OF THE INTRATHECAL PUMP WAS PREPPED WITH CHLORAPREP. The fenestrated drape was sterilely applied over the area of the pump. Sterile gloves were worn and of the aspiration system was assembled containing 2 in 22 gauge noncoring needle, the needle was connected to extension tubing which was connected to the 20 cc sterile syringe. The pain pump was palpated under the skin in the patient's right buttock area. The needle was inserted through the skin and the central plug of the pain pump and fluid was aspirated. The clear fluid was going into the syringe the total amount of the fluid was 10.0 mL .. After that a new batch? of medication was obtained which was containing hydromorphone in concentration of 1200 micro g per mL and bupivacain 20 mg per ml. The admixture was made in 20 cc syringe prepared by [facility] compounding pharmacy. The syringe was connected to the bacterial filter, and then connected to the extension tubing. After that the medication in the syringe was slowly instilled into the pump with aspirations at 15 and 5 cc pemberton.? The pump was reprogrammed for the doses of continuous infusion of hydromorphone 100 mcg a day with corresponding dose of the bupivacaine as well as she was given a bolus of 125 micro g every 8 hours with ability to administer 2 boluses per 24 hours Bridge bolus was given for 42 hours. Coding Level of Care Code Est Pt Level 3 (16594) Procedure Only Diagnoses Spondylosis of lumbosacral spine with radiculopathy M47.27 Chronic pain syndrome G89.4 Status post total knee replacement, right Z96.651 Sacroiliitis M46.1 Pain of both sacroiliac joints M53.3
[2023-11-10 15:51] VITALS: BP 104/64; PULSE 73; RESP 16; O2SAT 94; BMI 31.4
== END 2023-11-10 15:12 | disposition home or self-care (01) ==
PROVIDERS: PCP Internal Medicine; Visit Provider Anesthesiology
DX: G89.4 Chronic pain syndrome (principal); Z96.651 Presence of right artificial knee joint; M46.1 Sacroiliitis, not elsewhere classified; M53.3 Sacrococcygeal disorders, not elsewhere classified; Z45.1 Encounter for adjustment and management of infusion pump
CPT/HCPCS: 62370; 99213

== ENCOUNTER → 2023-11-10 13:59 | Outpatient (BNVA) | payer OTHER, SELFPAY | PROVIDERS: PCP Internal Medicine; Visit Provider Anesthesiology | DX: Z45.89 Encounter for adjustment and management of other implanted devices (principal); M47.27 Other spondylosis with radiculopathy, lumbosacral region; M46.1 Sacroiliitis, not elsewhere classified; M53.3 Sacrococcygeal disorders, not elsewhere classified; G89.4 Chronic pain syndrome; Z96.651 Presence of right artificial knee joint | CPT/HCPCS: 62370; 99212 ==

== ENCOUNTER 2024-01-12 13:59 | Outpatient (AMB) | payer OTHER, SELFPAY ==
--- NOTE | 2024-01-12 14:03 | MHC.OFFVIS ---
Vital Signs 01/12/24 14:17 Height 5 ft 3 in Weight 174 lb 4 oz BMI 30.9 BP 118/70 Blood Pressure Location Lt brachial Position Sitting Respiration 16 Pulse 70 Pulse Source Pulse Oximeter Pulse Oximetry (%) 96 Oxygen Delivery Method Room Air Intake Visit Reasons: ITDD Pump Refill Intake Note: Patient comes in for intrathecal medication refill. Reports pain 12/12. Allergies Sulfa (Sulfonamide Antibiotics) Allergy (Mild, Verified 01/12/24 14:18) RASH,ITCHY, rash, rash HPI Comments Details: Debbie is here in the office today to refill the medication in her pain pump. She complains with new doses of the medication she feel numbness in the right side of the body after application of the PTM dose. It is probably because of the doses of the bupivacaine are now applied over the short period of time and cause significant numbness. Today I decided to increase time of the administration of the bolus doses to 55 minutes. This probably will not result into as much of dramatic numbness. However if patient will continue to experience numbness we can invite her back obtain medication urgently from [facility] and remove bupivacaine from the admixture. Prior: Debbie is on the phone today after 2 months of absence. She missed her last pain pump refill. She for 2 months was not available for any contacts. We actually requested local police to check on her, they did not find her available at home. Today she is calling us and her explanation was that there were several funerals of in the family that is why she could not go for pain medication refill in the pump. Unfortunately now the pump is for 2 months has been running dry. It is very likely it is dysfunctional at this moment. I told her that her 1st step would be to come here and have her pump to be read. After that I will make a decision what will be the next step with this pump [facility] Medical History (Updated 04/15/23 @ 08:51 by Marium Lincoln RN) Irregular heart rhythm History of seizures IBS (irritable bowel syndrome) GERD (gastroesophageal reflux disease) History of hepatitis C Facial palsy Migraines Anxiety and depression KIMBERLY (obstructive sleep apnea) Asthma History of COVID-19 Chronic pain syndrome Spondylosis of lumbosacral spine with radiculopathy Surgical History (Updated 06/02/23 @ 07:50 by Nato Gardner MD) Hx of surgical procedure Hx of left inguinal hernia repair Hx of appendectomy History of surgery History of surgery History of surgery History of bunionectomy Hx of arthroscopy of right knee Status post total knee replacement, right Social History Patient Tobacco Use Status: Former Tobacco user Tobacco use type: Cigarette Second Hand Smoke Exposure: No Review of Systems Const All systems reviewed & are unremarkable except as noted in HPI and below Physical Exam Vital Signs: Last Vital Signs Pulse 70 01/12/24 14:17 Resp 16 01/12/24 14:17 BP 118/70 01/12/24 14:17 Pulse Ox 96 01/12/24 14:17 Oxygen Delivery Method Room Air 01/12/24 14:17 BMI result Body Mass Index 30.9 Const Nutritional Appearance: average body habitus Orientation/consciousness: oriented to person and patient oriented x3 Eyes General: appearance normal, both eyes and all related structures Pupils: Equal, round and reactive pupils present EOM: EOMs intact bilaterally Neck Neck: Yes full ROM Chest Chest palpation & inspection: normal inspection of the chest Resp Effort & Inspection: normal respiratory effort, able to speak in complete sentences, normal respiratory pattern, no audible wheezes and no cough Cardio Jugular venous distension: no JVD GI Inspection: Yes normal to inspection Back/Spine/Pelvis Other: Tenderness of palpation of paraspinal spinal region lumbar spine no most strands of bilateral lower extremities. Reflexes are symmetrical and +2 bilaterally patellar and Achilles. Reports mostly axial pain. Reports pain radiation into the upper lumbar spine tenderness on palpation spreads into thoracic spine. Neuro General: oriented to person and patient oriented x3 Cranial nerves: Yes Equal, round and reactive pupils present Gait exam (Neuro): Normal gait present Motor exam (neuro): 5/5 motor strength present throughout Extrem General: No pedal edema Assessment & Plan Assessment & Plan (1) Spondylosis of lumbosacral spine with radiculopathy: Code(s): M47.27 - Other spondylosis with radiculopathy, lumbosacral region Category: Medical (2) Chronic pain syndrome: Code(s): G89.4 - Chronic pain syndrome Category: Medical Plan: The patient feels improvement with her pain syndrome. The patient reports numbness as discussed above. We will increase the time of the administration of the medication to reduce rostral spread of the medication and decrease the time of the dose application. Patient is recommended to continue observation and if she continues to feel numbness give us a call and we will change the concentration of bupivacaine in the admixture or remove bupivacaine completely from admixture. (3) Status post total knee replacement, right: Code(s): Z96.651 - Presence of right artificial knee joint Category: Surgical (4) Sacroiliitis: Code(s): M46.1 - Sacroiliitis, not elsewhere classified Category: Medical (5) Pain of both sacroiliac joints: Code(s): M53.3 - Sacrococcygeal disorders, not elsewhere classified Category: Medical Plan: Next refill appointment will be scheduled on 01/12/2024. Plan ? Intrathecal pump refill. THE PATIENT CAME TODAY IN THE office FOR THE CHANGE OF THE MEDICATION IN her PAIN PUMP. The name and date of were verified and informed consent was obtained for the procedure. ?The pump was interrogated and the residual amount of fluid was found to be 12.1 mL. SHE WAS POSITIONED prone on the bed AND THE AREA OF THE INTRATHECAL PUMP WAS PREPPED WITH CHLORAPREP. The fenestrated drape was sterilely applied over the area of the pump. Sterile gloves were worn and of the aspiration system was assembled containing 2 in 22 gauge noncoring needle, the needle was connected to extension tubing which was connected to the 20 cc sterile syringe. The pain pump was palpated under the skin in the patient's right buttock area. The needle was inserted through the skin and the central plug of the pain pump and fluid was aspirated. The clear fluid was going into the syringe the total amount of the fluid was 12.1 mL .. After that a new batch? of medication was obtained which was containing hydromorphone in concentration of 1200 micro g per mL and bupivacain 20 mg per ml. The admixture was made in 20 cc syringe prepared by [facility] compounding pharmacy. The syringe was connected to the bacterial filter, and then connected to the extension tubing. After that the medication in the syringe was slowly instilled into the pump with aspirations at 15 and 5 cc pemberton.? The pump was reprogrammed for the doses of continuous infusion of hydromorphone 100 mcg a day with corresponding dose of the bupivacaine as well as she was given a bolus of 125 micro g every 8 hours with ability to administer 2 boluses per 24 hours the bolus now will be administered over the course of 55 minutes. Coding Level of Care Code Est Pt Level 3 (28685) Procedure Only Diagnoses Spondylosis of lumbosacral spine with radiculopathy M47.27 Chronic pain syndrome G89.4 Status post total knee replacement, right Z96.651 Sacroiliitis M46.1 Pain of both sacroiliac joints M53.3
[2024-01-12 14:17] VITALS: BP 118/70; PULSE 70; RESP 16; O2SAT 96; BMI 30.9
== END 2024-01-12 14:38 | disposition home or self-care (01) ==
PROVIDERS: PCP Internal Medicine; Visit Provider Anesthesiology
DX: M47.27 Other spondylosis with radiculopathy, lumbosacral region (principal); G89.4 Chronic pain syndrome; Z96.651 Presence of right artificial knee joint; M46.1 Sacroiliitis, not elsewhere classified; Z45.1 Encounter for adjustment and management of infusion pump; M53.3 Sacrococcygeal disorders, not elsewhere classified
CPT/HCPCS: 62370; 99213

== ENCOUNTER → 2024-01-12 13:59 | Outpatient (BNVA) | payer OTHER, SELFPAY | PROVIDERS: PCP Internal Medicine; Visit Provider Anesthesiology | DX: M47.27 Other spondylosis with radiculopathy, lumbosacral region (principal); G89.4 Chronic pain syndrome; M46.1 Sacroiliitis, not elsewhere classified; M53.3 Sacrococcygeal disorders, not elsewhere classified; Z45.1 Encounter for adjustment and management of infusion pump; Z96.651 Presence of right artificial knee joint | CPT/HCPCS: 62370; 99212 ==

== ENCOUNTER 2024-03-19 14:03 | Outpatient (AMB) | payer OTHER, SELFPAY ==
--- NOTE | 2024-03-19 14:04 | A.OFFVIS_ITS ---
Vital Signs 03/19/24 14:06 Height 5 ft 3 in Weight 174 lb BMI 30.8 BP 114/70 Blood Pressure Location Lt brachial Position Sitting Respiration 17 Pulse 70 Pulse Source Pulse Oximeter Pulse Oximetry (%) 97 Oxygen Delivery Method Room Air Intake Visit Reasons: ITDD Refill Allergies Sulfa (Sulfonamide Antibiotics) Allergy (Mild, Verified 03/19/24 14:07) RASH,ITCHY, rash, rash Medication List - Last Reconciled 03/19/24 by Elena Galan LPN albuterol sulfate 90 mcg/actuation (ProAir HFA) 2 puffs inhalation Q6H PRN albuterol sulfate 2.5 mg inhalation Q4-6H PRN aspirin 81 mg PO DAILY celecoxib (Celebrex) 200 mg PO BID PRN 30 days divalproex ER 250 mg PO DAILY hydromorphone 2 mg PO Q6H PRN 3 days lidocaine 5% 2 patches topical DAILY mometasone-formoterol 200-5 mcg/actuation (Dulera) 2 puffs inhalation BID naloxone 4 mg/actuation (Narcan) 4 mg intranasal Q2M PRN 1 day nortriptyline 25 mg PO BEDTIME pregabalin 150 mg PO BID ropinirole 2 mg PO BEDTIME sumatriptan succinate 25 mg PO DAILY umeclidinium 62.5 mcg/actuation (Incruse Ellipta) 1 inh inhalation DAILY HPI Comments Details: Debbie is here in the office today to refill the medication in her pain pump. She does not complain on significant pain syndrome today. Most of the problems seem to be that she has exacerbation of her asthma and she reports in her family. Pain pump was refilled as below. The concentration of medication and doses of the medications stay the same. I will schedule her refill in 70 days. Prior: Debbie is on the phone today after 2 months of absence. She missed her last pain pump refill. She for 2 months was not available for any contacts. We actually requested local police to check on her, they did not find her available at home. Today she is calling us and her explanation was that there were several funerals of in the family that is why she could not go for pain medication refill in the pump. Unfortunately now the pump is for 2 months has been running dry. It is very likely it is dysfunctional at this moment. I told her that her 1st step would be to come here and have her pump to be read. After that I will make a decision what will be the next step with this pump COUNT INCLUDES [facility] Medical History (Updated 04/15/23 @ 08:51 by Marium Lincoln RN) Irregular heart rhythm History of seizures IBS (irritable bowel syndrome) GERD (gastroesophageal reflux disease) History of hepatitis C Facial palsy Migraines Anxiety and depression KIMBERLY (obstructive sleep apnea) Asthma History of COVID-19 Chronic pain syndrome Spondylosis of lumbosacral spine with radiculopathy Surgical History (Updated 06/02/23 @ 07:50 by Nato Gardner MD) Hx of surgical procedure Hx of left inguinal hernia repair Hx of appendectomy History of surgery History of surgery History of surgery History of bunionectomy Hx of arthroscopy of right knee Status post total knee replacement, right Social History Patient Tobacco Use Status: Former Tobacco user Tobacco use type: Cigarette Second Hand Smoke Exposure: No Review of Systems Const All systems reviewed & are unremarkable except as noted in HPI and below Physical Exam Vital Signs: Last Vital Signs Pulse 70 03/19/24 14:06 Resp 17 03/19/24 14:06 BP 114/70 03/19/24 14:06 Pulse Ox 97 03/19/24 14:06 Oxygen Delivery Method Room Air 03/19/24 14:06 BMI result Body Mass Index 30.8 Const Nutritional Appearance: average body habitus Orientation/consciousness: oriented to person and patient oriented x3 Eyes General: appearance normal, both eyes and all related structures Pupils: Equal, round and reactive pupils present EOM: EOMs intact bilaterally Neck Neck: Yes full ROM Chest Chest palpation & inspection: normal inspection of the chest Resp Effort & Inspection: normal respiratory effort, able to speak in complete sentences, normal respiratory pattern, no audible wheezes and no cough Cardio Jugular venous distension: no JVD GI Inspection: Yes normal to inspection Back/Spine/Pelvis Other: Tenderness of palpation of paraspinal spinal region lumbar spine no most strands of bilateral lower extremities. Reflexes are symmetrical and +2 bilaterally patellar and Achilles. Reports mostly axial pain. Reports pain radiation into the upper lumbar spine tenderness on palpation spreads into thoracic spine. Neuro General: oriented to person and patient oriented x3 Cranial nerves: Yes Equal, round and reactive pupils present Gait exam (Neuro): Normal gait present Motor exam (neuro): 5/5 motor strength present throughout Extrem General: No pedal edema Assessment & Plan Assessment & Plan (1) Spondylosis of lumbosacral spine with radiculopathy: Code(s): M47.27 - Other spondylosis with radiculopathy, lumbosacral region Category: Medical (2) Chronic pain syndrome: Code(s): G89.4 - Chronic pain syndrome Category: Medical Plan: The patient feels improvement with her pain syndrome. She reports only asthma exacerbation today and emotional distress due to of the family. 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 (3) Status post total knee replacement, right: Code(s): Z96.651 - Presence of right artificial knee joint Category: Surgical (4) Sacroiliitis: Code(s): M46.1 - Sacroiliitis, not elsewhere classified Category: Medical (5) Pain of both sacroiliac joints: Code(s): M53.3 - Sacrococcygeal disorders, not elsewhere classified Category: Medical Plan: Next refill appointment will be scheduled on 01/12/2024. Plan ? Intrathecal pump refill. THE PATIENT CAME TODAY IN THE office FOR THE CHANGE OF THE MEDICATION IN her PAIN PUMP. The name and date of were verified and informed consent was obtained for the procedure. ?The pump was interrogated and the residual amount of fluid was found to be 11.9 mL. SHE WAS POSITIONED prone on the bed AND THE AREA OF THE INTRATHECAL PUMP WAS PREPPED WITH CHLORAPREP. The fenestrated drape was sterilely applied over the area of the pump. Sterile gloves were worn and of the aspiration system was assembled containing 2 in 22 gauge noncoring needle, the needle was connected to extension tubing which was connected to the 20 cc sterile syringe. The pain pump was palpated under the skin in the patient's right buttock area. The needle was inserted through the skin and the central plug of the pain pump and fluid was aspirated. The clear fluid was going into the syringe the total amount of the fluid was 11.9 mL .. After that a new batch? of medication was obtained which was containing hydromorphone in concentration of 1200 micro g per mL and bupivacain 20 mg per ml. The admixture was made in 20 cc syringe prepared by [facility] compounding pharmacy. The syringe was connected to the bacterial filter, and then connected to the extension tubing. After that the medication in the syringe was slowly instilled into the pump with aspirations at 15 and 5 cc pemberton.? The pump was reprogrammed for the doses of continuous infusion of hydromorphone 100 mcg a day with corresponding dose of the bupivacaine as well as she was given a bolus of 125 micro g every 8 hours with ability to administer 2 boluses per 24 hours the bolus now will be administered over the course of 55 minutes. Coding Level of Care Code Est Pt Level 3 (57284) Procedure Only Diagnoses Spondylosis of lumbosacral spine with radiculopathy M47.27 Chronic pain syndrome G89.4 Status post total knee replacement, right Z96.651 Sacroiliitis M46.1 Pain of both sacroiliac joints M53.3
[2024-03-19 14:06] VITALS: BP 114/70; PULSE 70; RESP 17; O2SAT 97; BMI 30.8
== END 2024-03-19 14:27 | disposition home or self-care (01) ==
LOC: HO.PMC 14:03
PROVIDERS: PCP Internal Medicine; Visit Provider Anesthesiology
DX: G89.4 Chronic pain syndrome (principal); M47.27 Other spondylosis with radiculopathy, lumbosacral region; M46.1 Sacroiliitis, not elsewhere classified; M53.3 Sacrococcygeal disorders, not elsewhere classified; Z45.1 Encounter for adjustment and management of infusion pump; Z96.651 Presence of right artificial knee joint
CPT/HCPCS: 62370; 99213

== ENCOUNTER → 2024-03-19 14:03 | Outpatient (BNVA) | payer OTHER, SELFPAY | PROVIDERS: PCP Internal Medicine; Visit Provider Anesthesiology | DX: M47.27 Other spondylosis with radiculopathy, lumbosacral region (principal); M46.1 Sacroiliitis, not elsewhere classified; M53.3 Sacrococcygeal disorders, not elsewhere classified; G89.4 Chronic pain syndrome; Z45.1 Encounter for adjustment and management of infusion pump; Z96.651 Presence of right artificial knee joint; Z79.899 Other long term (current) drug therapy | CPT/HCPCS: 62370; 99212 ==

== ENCOUNTER → 2024-05-28 14:51 | Outpatient (BNVA) | payer OTHER, SELFPAY | PROVIDERS: PCP Internal Medicine; Visit Provider Anesthesiology | DX: Z45.89 Encounter for adjustment and management of other implanted devices (principal); M47.27 Other spondylosis with radiculopathy, lumbosacral region; M46.1 Sacroiliitis, not elsewhere classified; G89.4 Chronic pain syndrome; Z96.651 Presence of right artificial knee joint | CPT/HCPCS: 99212 ==

== ENCOUNTER 2025-01-02 14:04 | Outpatient (AMB) | payer OTHER, SELFPAY ==
[2025-01-02 14:23] VITALS: BP 118/73; PULSE 97; RESP 18; O2SAT 96; BMI 29.2
--- NOTE | 2025-01-02 14:23 | MHC.OFFVIS ---
Vital Signs 01/02/25 14:23 Height 5 ft 3 in Weight 165 lb BMI 29.2 BP 118/73 Blood Pressure Location Lt brachial Position Sitting Respiration 18 Pulse 97 Pulse Source Pulse Oximeter Pulse Oximetry (%) 96 Oxygen Delivery Method Room Air Intake Visit Reasons: pump fill Allergies Sulfa (Sulfonamide Antibiotics) Allergy (Mild, Verified 01/02/25 14:24) RASH,ITCHY, rash, rash HPI Comments Details: Debbie is here in the office today to refill the medication in her pain pump. She again was absent for 4 month after the time she will supposed to come and refill her pump again. I informed this patient that if she will allow her pain pump to run dry again I would need to the remove the device or replace it with the [employer] new device. I will have to refused to fill up her pain pump if she will allow the machine to run dry 1 more time. The full report see as below. At the same time I will continue to increase the time of the administration of PTM to spread medication in the CSF with slower propulsion, preventing rostral spread of the medication. It is possible that clonidine in her pain pump causes hypotension and that is why she feels nauseous. She will measure her blood pressure 30 minutes and 1 hour 30 minutes after application of her PTM. I will schedule her refill on 62 days [facility] Medical History (Updated 04/15/23 @ 08:51 by Marium Lincoln RN) Irregular heart rhythm History of seizures IBS (irritable bowel syndrome) GERD (gastroesophageal reflux disease) History of hepatitis C Facial palsy Migraines Anxiety and depression KIMBERLY (obstructive sleep apnea) Asthma History of COVID-19 Chronic pain syndrome Spondylosis of lumbosacral spine with radiculopathy Surgical History (Updated 06/02/23 @ 07:50 by Nato Gardner MD) Hx of surgical procedure Hx of left inguinal hernia repair Hx of appendectomy History of surgery History of surgery History of surgery History of bunionectomy Hx of arthroscopy of right knee Status post total knee replacement, right Social History Patient Tobacco Use Status: Former Tobacco user Tobacco use type: Cigarette Second Hand Smoke Exposure: No Review of Systems Const All systems reviewed & are unremarkable except as noted in HPI and below Physical Exam Vital Signs: Last Vital Signs Pulse 97 01/02/25 14:23 Resp 18 01/02/25 14:23 BP 118/73 01/02/25 14:23 Pulse Ox 96 01/02/25 14:23 Oxygen Delivery Method Room Air 01/02/25 14:23 BMI result Body Mass Index 29.2 Const Nutritional Appearance: average body habitus Orientation/consciousness: oriented to person and patient oriented x3 Eyes General: appearance normal, both eyes and all related structures Pupils: Equal, round and reactive pupils present EOM: EOMs intact bilaterally Neck Neck: Yes full ROM Chest Chest palpation & inspection: normal inspection of the chest Resp Effort & Inspection: normal respiratory effort, able to speak in complete sentences, normal respiratory pattern, no audible wheezes and no cough Cardio Jugular venous distension: no JVD GI Inspection: Yes normal to inspection Back/Spine/Pelvis Other: Tenderness of palpation of paraspinal spinal region lumbar spine no most strands of bilateral lower extremities. Reflexes are symmetrical and +2 bilaterally patellar and Achilles. Reports mostly axial pain. Reports pain radiation into the upper lumbar spine tenderness on palpation spreads into thoracic spine. Neuro General: oriented to person and patient oriented x3 Cranial nerves: Yes Equal, round and reactive pupils present Gait exam (Neuro): Normal gait present Motor exam (neuro): 5/5 motor strength present throughout Extrem General: No pedal edema Assessment & Plan Assessment & Plan (1) Spondylosis of lumbosacral spine with radiculopathy: Code(s): M47.27 - Other spondylosis with radiculopathy, lumbosacral region Category: Medical (2) Chronic pain syndrome: Code(s): G89.4 - Chronic pain syndrome Category: Medical Plan: The patient again allow her pump to get dry. See discussion as above. See refill of the pump as below (3) Status post total knee replacement, right: Code(s): Z96.651 - Presence of right artificial knee joint Category: Surgical (4) Sacroiliitis: Code(s): M46.1 - Sacroiliitis, not elsewhere classified Category: Medical (5) Pain of both sacroiliac joints: Code(s): M53.3 - Sacrococcygeal disorders, not elsewhere classified Category: Medical Plan: Next refill appointment will be scheduled on 01/12/2024. Plan ? Intrathecal pump refill. THE PATIENT CAME TODAY IN THE office FOR THE CHANGE OF THE MEDICATION IN her PAIN PUMP. The name and date of were verified and informed consent was obtained for the procedure. ?The pump was interrogated and the residual amount of fluid was found to be 0 mL. SHE WAS POSITIONED prone on the bed AND THE AREA OF THE INTRATHECAL PUMP WAS PREPPED WITH CHLORAPREP. The fenestrated drape was sterilely applied over the area of the pump. Sterile gloves were worn and of the aspiration system was assembled containing 2 in 22 gauge noncoring needle, the needle was connected to extension tubing which was connected to the 20 cc sterile syringe. The pain pump was palpated under the skin in the patient's right buttock area. The needle was inserted through the skin and the central plug of the pain pump and fluid was aspirated. The clear fluid was going into the syringe the total amount of the fluid was 0 mL .. After that a new batch? of medication was obtained which was containing hydromorphone in concentration of 1200 micro g per mL and bupivacain 20 mg per ml as well as clonidine 360 micro g per mL. . The admixture was made in 20 cc syringe prepared by [facility] compounding pharmacy. The syringe was connected to the bacterial filter, and then connected to the extension tubing. After that the medication in the syringe was slowly instilled into the pump with aspirations at 15 and 5 cc [place].? The pump was reprogrammed for the doses of continuous infusion of hydromorphone 120 mcg a day with corresponding dose of the bupivacaine as well as she was given a bolus of 125 micro g every 8 hours with ability to administer 2 boluses per 24 hours the bolus now will be administered over the course of 1 hour 30 minutes. Coding Level of Care Code Est Pt Level 3 (13580) Procedure Only Diagnoses Spondylosis of lumbosacral spine with radiculopathy M47.27 Chronic pain syndrome G89.4 Status post total knee replacement, right Z96.651 Sacroiliitis M46.1 Pain of both sacroiliac joints M53.3
== END 2025-01-02 14:25 | disposition home or self-care (01) ==
LOC: HO.PMC 14:04
PROVIDERS: PCP Internal Medicine; Visit Provider Anesthesiology
DX: M47.27 Other spondylosis with radiculopathy, lumbosacral region (principal); G89.4 Chronic pain syndrome; Z96.651 Presence of right artificial knee joint; M46.1 Sacroiliitis, not elsewhere classified; M53.3 Sacrococcygeal disorders, not elsewhere classified; Z45.1 Encounter for adjustment and management of infusion pump
CPT/HCPCS: 62370; 99213

== ENCOUNTER → 2025-01-02 14:04 | Outpatient (BNVA) | payer OTHER, SELFPAY | PROVIDERS: PCP Internal Medicine; Visit Provider Anesthesiology | DX: Z45.1 Encounter for adjustment and management of infusion pump (principal); M47.27 Other spondylosis with radiculopathy, lumbosacral region; G89.4 Chronic pain syndrome; M46.1 Sacroiliitis, not elsewhere classified; M53.3 Sacrococcygeal disorders, not elsewhere classified; Z96.651 Presence of right artificial knee joint | CPT/HCPCS: 62370; 99212 ==